=== PATIENT | female | born 1980 | race Caucasian/White ===

== ENCOUNTER 2016-09-07 19:57 | Observation (INO) ==
[2016-09-07 21:11] LABS: Bilirubin,Urine Negative (Negative); Blood,Urine Negative (Negative); Clarity,Urine Clear (Clear); Color,Urine Yellow (Yellow); Glucose,Urine (UA) >=1000 mg/dL (Normal); Ketones,Urine Negative (Negative); Leukocyte Esterase,Urine Negative (Negative); Nitrite,Urine Negative (Negative); Protein,Urine 30 mg/dL (Neg-Trace); Specific Gravity,Urine > 1.030 (1.010-1.025); Urobilinogen,Urine Normal (Normal)
[2016-09-07 21:13] LABS: Bacteria,Urine Few per hpf (None-Few); Hyaline Casts,Urine None Seen per lpf (None-Few); Squamous Epithelial Cell,Urine Many per lpf (None-Few)
[2016-09-07 21:36] LABS: Basophils % 0.3 %; Mean Corpuscular Volume 65.2 fL (83.0-100.0); Monocytes % 6.6 %; Platelet Count 150 K/mcL (140-400)
[2016-09-07 21:37] LABS: Eosinophils # 0.2 K/mcL (0.0-0.6); Hematocrit 18.4 % (35.3-44.9); Immature Granulocytes % 1.3 % (0-4); Immature Platelets 6.3 % (1.1-6.1); Lymphocytes % 27.3 %; Mean Corpuscular HGB Conc 28.8 g/dL (31.6-35.5); Mean Corpuscular Hemoglobin 18.8 pg (28.0-33.3); Monocytes # 0.4 K/mcL (0.0-1.3); Neutrophils # 3.9 K/mcL (1.6-8.9); Nucleated Red Blood Cells 0.3 /100 WBC (0); Red Blood Count 2.82 M/mcL (3.82-4.97); Red Cell Distribution Width 18.4 % (11.5-14.5); Segmented Neutrophils % 61.5 %
[2016-09-07 21:40] LABS: BUN/Creatinine Ratio 14 (6-26); Blood Urea Nitrogen 12 mg/dL (7-20); Calcium 8.8 mg/dL (8.6-10.8); Carbon Dioxide 21 mEq/L (19-29); Chloride 100 mEq/L (98-109); Glucose 361 mg/dL (70-99); Osmolality,Calculated 290 (280-300); Sodium 133 mEq/L (136-145); eGFR For African Americans > 60 (> 60); eGFR For Non-African Americans > 60 (> 60)
[2016-09-07 21:56] LABS: Lymphocytes # 1.8 K/mcL (0.6-4.6)
[2016-09-07 21:59] LABS: Hemoglobin 5.3 g/dL (11.5-15.4)
[2016-09-07 22:01] LABS: Anisocytosis 2+ (Not Present); Hypochromasia Present (Not Present); Microcytosis Present (Not Present)
[2016-09-07 22:02] LABS: Platelet Estimate Normal (Normal)
[2016-09-07] MEDS ORDERED: 0.9 % Sodium Chloride 1,000 ML ONE (22:11)
--- NOTE | 2016-09-07 22:23 | Emergency Department Note ---
Disposition Clinical Impression: Anemia Qualifiers: Anemia type: unspecified type Qualified Code(s): D64.9 - Anemia, unspecified Disposition: Admitted As Inpatient Condition: Good Time of Disposition: 22:29 General Adult HPI - General Chief complaint: ED Dizziness Stated complaint: dizziness vomiting fever Time Seen by Provider: 09/07/16 20:35 Source: patient Limitations: no limitations Nursing Notes Reviewed: Yes Vital Signs Reviewed: Yes - History of Present Illness HPI Narrative: pt presents with weakness and feeling like she has dizziness and weakness similar to her previous anemia from vaginal bleeding. She did not follow up with her OB physician who started on medications. She is here today because she has had 2 episodes of heavy menses of the last 2 months. 2 months ago her bleeding lasted approximately 3 weeks. Patient denies any other complaints or issues at this time she is currently denying bleeding Onset (ago): month(s) (2 months) Radiation: non-radiation Pain Scale: 0 Quality: aching Consistency: constant Improves with: nothing Worsens with: movement Associated symptoms: Reports: denies other symptoms Treatments Prior to Arrival: none - Related Data Home Medications Medication Instructions Recorded Confirmed Lisinopril [Zestril] 20 mg PO DAILY 09/08/16 09/08/16 Metformin [Glucophage] 500 mg PO BIDWM 09/08/16 09/08/16 Allergies Allergy/AdvReac Type Severity Reaction Status Date / Time No Known Allergies Allergy Verified 09/07/16 20:15 All systems ED: reviewed and negative except as stated. Gastrointestinal: Reports: other (Heavy vaginal bleeding) Neurological: Reports: other (Lightheaded and dizzy while walking) Past Medical History - Past Medical History Attestation: Yes The following information was validated with the patient. Source: patient (5) Medical history: Reports: diabetes, hypertension Psychiatric history: Reports: no psych history MOTION GRAPHICS ARTIST history: Reports: no MOTION GRAPHICS ARTIST history - Social History Smoking Status: Never smoker Smokeless Tobacco Status: No Alcohol use: Reports: none Drug use: Reports: none Physical Exam - General Limitations: no limitations General appearance: alert - Chest Chest inspection: Present: normal inspection, symmetric chest wall rise - Respiratory Respiratory exam: Present: normal lung sounds bilaterally - Cardiovascular Cardiovascular exam: Present: regular rate, normal rhythm, normal heart sounds - Extremities Exam Extremities exam: Present: normal inspection, full ROM. Absent: tenderness - Back Exam Back exam: Present: normal inspection, full ROM. Absent: tenderness - Neurological Exam Neurological exam: Present: alert, oriented X3, CN II-XII intact, normal gait - Skin Skin exam: Present: pallor Course Course Narrative: Patient seen and examined the time of arrival. See history of present illness. Patient resents emergency room with complaint of generalized weakness and dizziness. She has had this happen once in the past when she was anemic. He has had heavy menstrual bleeding over the last 2 months at home. She has never been seen by her OB for treatment of this issue. Patient comes in here today denying bleeding but she was at her grandmother's house and her grandmother told her that she looked Pale. Patient denied any other symptoms except for the weakness and dizziness. She says that this is identical to her previous anemia event. She has required a blood transfusion in the past. physical exam is benign she looks appropriate. Skin does have pallor to it. Her conjunctiva are pale. Capillary refill is diminished less than 5 seconds this time. Patient has normal blood pressure and's vital signs on presentation. Patient denies bleeding of this point abdomen is benign lungs are clear heart is regular. She will have basic CBC chem strip urinalysis at this time. Eventually also prophylactically in case she is anemic. Patient is resting comfortable in the bed disposition pending treatment course - Reevaluation(s) Reevaluation #1: Patient on a hemoglobin of 5.3. Transfusion of your this time. Patient be admitted for evaluation and medical management. Patient is otherwise stable at this time. [facility] patient this time Time: 22:29 Reevaluation #2: Patient was discussed with the hospitalist . The patient's presentation symptoms history of vaginal bleeding and anemia. He is happy to bring the patient for further evaluation and management. Second unit of blood is having at this time. Hemodynamics of been stable. No other acute issues at this point. Continue monitoring in emergency room to the admission process is completed Time: 23:35 Vital Signs Temperature 98.7 F 09/07/16 20:15 Pulse Rate 115 09/07/16 20:15 Respiratory Rate 20 09/07/16 20:15 Blood Pressure 182/94 09/07/16 20:15 O2 Sat by Pulse Oximetry 99 09/07/16 20:15 Temperature 97.7 F 09/08/16 03:34 Pulse Rate 56 09/08/16 03:34 Respiratory Rate 16 09/08/16 03:34 Blood Pressure 177/108 09/08/16 03:34 O2 Sat by Pulse Oximetry 95 09/08/16 03:34 Oxygen Delivery Oxygen Delivery Room Air Medical Decision Making - MDM Narrative Medical decision making narrative: Anemia secondary to vaginal bleeding - Medical Records Medical records reviewed: Yes I reviewed the patient's medical records. - Lab Data Lab results reviewed: Yes I reviewed the patient's lab results. Result diagrams: 09/07/16 21:11 09/07/16 21:11 Lab Results 09/07/16 09/07/16 09/07/16 Range/Units 20:43 20:43 21:11 WBC 6.4 (4.3-11.1) K/mcL RBC 2.82 L (3.82-4.97) M/mcL Hgb 5.3 L* (11.5-15.4) g/dL Hct 18.4 L (35.3-44.9) % MCV 65.2 L (83.0-100.0) fL MCH 18.8 L (28.0-33.3) pg MCHC 28.8 L (31.6-35.5) g/dL RDW 18.4 H (11.5-14.5) % Plt Count 150 (140-400) K/mcL MPV TNP Immature Gran % 1.3 (0-4) % Seg Neutrophils % 61.5 % Lymphocytes % 27.3 % Monocytes % 6.6 % Eosinophils % 3.0 % Basophils % 0.3 % Neutrophils # 3.9 (1.6-8.9) K/mcL Lymphocytes # 1.8 (0.6-4.6) K/mcL Monocytes # 0.4 (0.0-1.3) K/mcL Eosinophils # 0.2 (0.0-0.6) K/mcL Basophils # 0.0 (0.0-0.2) K/mcL Nucleated RBCs/100 WBC 0.3 H (0) /100 WBC Platelet Estimate Normal (Normal) Immature Plt Fraction 6.3 H (1.1-6.1) % Hypochromasia Present A (Not Present) Anisocytosis 2+ A (Not Present) Microcytosis Present A (Not Present) Sodium (136-145) mEq/L Potassium (3.5-4.5) mEq/L Chloride (98-109) mEq/L Carbon Dioxide (19-29) mEq/L BUN (7-20) mg/dL Creatinine (0.57-1.11) mg/dL Est GFR ( Amer) (> 60) Est GFR (Non-Af Amer) (> 60) BUN/Creatinine Ratio (6-26) Glucose (70-99) mg/dL Calculated Osmolality (280-300) Calcium (8.6-10.8) mg/dL Urine Color Yellow (Yellow) Urine Clarity Clear (Clear) Urine pH 6.0 (5.0-8.0) pH Units Ur Specific [place] > 1.030 H (1.010-1.025) Urine Protein 30 H (Neg-Trace) mg/dL Urine Glucose (UA) >=1000 H (Normal) mg/dL Urine Ketones Negative (Negative) mg/dL Urine Blood Negative (Negative) Urine Nitrite Negative (Negative) Urine Bilirubin Negative (Negative) Urine Urobilinogen Normal (Normal) mg/dL Ur Leukocyte Esterase Negative (Negative) Urine Microscopic RBC 5-15 H (0-3) per hpf Urine Microscopic WBC 5-15 H (0-3) per hpf Ur Squamous Epith Cells Many H (None-Few) per lpf Urine Bacteria Few (None-Few) per hpf Hyaline Casts None Seen (None-Few) per lpf Ur Culture Indicated? YES A (NO) Urine Test Negative (Negative) Blood Type Antibody Screen Crossmatch 09/07/16 09/07/16 Range/Units 21:11 21:11 WBC (4.3-11.1) K/mcL RBC (3.82-4.97) M/mcL Hgb (11.5-15.4) g/dL Hct (35.3-44.9) % MCV (83.0-100.0) fL MCH (28.0-33.3) pg MCHC (31.6-35.5) g/dL RDW (11.5-14.5) % Plt Count (140-400) K/mcL MPV Immature Gran % (0-4) % Seg Neutrophils % % Lymphocytes % % Monocytes % % Eosinophils % % Basophils % % Neutrophils # (1.6-8.9) K/mcL Lymphocytes # (0.6-4.6) K/mcL Monocytes # (0.0-1.3) K/mcL Eosinophils # (0.0-0.6) K/mcL Basophils # (0.0-0.2) K/mcL Nucleated RBCs/100 WBC (0) /100 WBC Platelet Estimate (Normal) Immature Plt Fraction (1.1-6.1) % Hypochromasia (Not Present) Anisocytosis (Not Present) Microcytosis (Not Present) Sodium 133 L (136-145) mEq/L Potassium 4.0 (3.5-4.5) mEq/L Chloride 100 (98-109) mEq/L Carbon Dioxide 21 (19-29) mEq/L BUN 12 (7-20) mg/dL Creatinine 0.84 (0.57-1.11) mg/dL Est GFR ( Amer) > 60 (> 60) Est GFR (Non-Af Amer) > 60 (> 60) BUN/Creatinine Ratio 14 (6-26) Glucose 361 H (70-99) mg/dL Calculated Osmolality 290 (280-300) Calcium 8.8 (8.6-10.8) mg/dL Urine Color (Yellow) Urine Clarity (Clear) Urine pH (5.0-8.0) pH Units Ur Specific [place] (1.010-1.025) Urine Protein (Neg-Trace) mg/dL Urine Glucose (UA) (Normal) mg/dL Urine Ketones (Negative) mg/dL Urine Blood (Negative) Urine Nitrite (Negative) Urine Bilirubin (Negative) Urine Urobilinogen (Normal) mg/dL Ur Leukocyte Esterase (Negative) Urine Microscopic RBC (0-3) per hpf Urine Microscopic WBC (0-3) per hpf Ur Squamous Epith Cells (None-Few) per lpf Urine Bacteria (None-Few) per hpf Hyaline Casts (None-Few) per lpf Ur Culture Indicated? (NO) Urine Test (Negative) Blood Type A POSITIVE Antibody Screen NEGATIVE Crossmatch See Detail Critical Care Time Critical Care Time: Yes Total Critical Care Time: 30 Attestation: Independent of procedures and medical management Attestation Statement - Attestation Attestation: I personally interviewed and examined this patient and my medical decision- making was reviewed with the ED Resident Physician, Dr. Doe. I agree with the documented findings, disposition and treatment plan as described in the documentation. Patient with iron deficiency anemia related to heavy menstrual periods who has been noncompliant with outpatient follow-up as well as her iron supplementation who presents today with gradually worsening lightheadedness generalized weakness and dyspnea with exertion. He should very pale in color and tachycardic on arrival to the emergency department with a stable blood pressure. Patient was found to be profoundly anemic on her CBC and patient was typed and crossed for 4 units of blood with blood transfusion initiated in the ED. Patient in no acute respiratory distress with a stable blood pressure throughout ED course. Plan is to admit patient for ongoing transfusion and reassessment, accepted by hospitalist service.
[2016-09-08] MEDS ORDERED: *HR* Dextrose 50 % in Water (Syg) 50 ML SYRINGE IVP PRN (02:40)
[2016-09-08] MEDS ORDERED: Dextrose Gel 15 GM PO PRN ×2 (02:40)
[2016-09-08] MEDS ORDERED: Fluconazole 100 MG TABLET PO ONE (02:43)
--- NOTE | 2016-09-08 02:50 | Internal Med History&Physical ---
<HerbertManju Ann - Last Filed: 09/08/16 04:28> Date of Encounter: 09/08/16 Time of Encounter: 02:46 Assessment and Plan (1) Anemia Current visit: Yes Status: Acute Hb 5.3 microcytic hypochromic 2uRBC trend H/H iron profile TSH lasix after RBCs add oral FE and folate BID Qualifiers: Anemia type: unspecified type Qualified Code(s): D64.9 - Anemia, unspecified (2) Abnormal vaginal bleeding Current visit: Yes Status: Acute TSH test (3) Yeast infection of the vagina Current visit: Yes Status: Acute diflucan 150 PO x1 (4) Vaginal discharge Current visit: Yes Status: Acute (5) Diabetes Current visit: Yes Status: Acute check A1C diabetic diet with moderate SCC Qualifiers: Diabetes mellitus type: other specified (including GIOVANI) (6) Hypertension Current visit: Yes Status: Acute continue home meds (7) Chronic RLQ pain Current visit: Yes Status: Acute pelvic US Internal Medicine - H&P: HPI Chief complaint: lightheaded dizziness Admitted From: Home Plans for Post Hospital Care: Home History of present illness: Ms. David is a 35 year old female c/o lightheaded dizziness. PMHx DM, HTN. Pt states she has been lightheaded and dizzy upon standing with increased fatigue and occasional racing heart beats today. Pt states for the past 4 months she has had heavy bleeding with large blood clots with her periods. The last two months periods have also been lasting about 3 weeks. She does have some cramping and discomfort during this time mostly in RLQ. Pt states that she did have episodes like this before in early in which she had to receive a blood transfusion for a hemoglobin of 2 and have multiple cysts removed. Pt states she also recently was sick one week ago placed on amoxicillin, 3days after starting antibiotics developed white vaginal discharge and vaginal itching. Pt previous pregnancies, denies abnormal paps, STIs. Pt denies syncopal episodes, LOC, CP, SOB, numbness/tingling, current abd pain. Past Med Surg Social Fam HX - Past Medical History Medical history: diabetes, hypertension, thyroid disease Psychiatric history: no psych history - Social History Smoking Status: Never smoker Smokeless Tobacco Status: No Alcohol use: none Drug use: none Current living situation: Home - Family History Father Hx Family Cardiac Disorders: Yes (IN, pacer) Hx Family Respiratory Disorders: Yes (COPD) Mother Hx Family Cardiac Disorders: Yes (IN, pacer) Hx Family Respiratory Disorders: Yes (COPD) Internal Medicine - H&P: Meds Lisinopril [Zestril] 20 mg PO DAILY 09/08/16 [History] Metformin [Glucophage] 1,000 mg PO BIDWM 09/08/16 [History] Norgestimate-Ethinyl Estradiol [Ortho Tri-Cyclen 28 Tablet] 1 each PO DAILY #30 tablet 09/08/16 [Rx] Allergies No Known Allergies Allergy (Verified 09/07/16 20:15) All Systems PM: A 10-system review of systems was performed and is negative for pertinent findings except as documented above in the HPI. - Constitutional Constitutional: fatigue, lethargy, malaise, weakness, no chills, no fever(s), no falls - EENT Eyes: no change in vision, no discharge, no pain, no photophobia - Cardiovascular Cardiovascular ROS IM: irregular heart rhythm, lightheadedness, no chest pain, no diaphoresis, no dyspnea, no dyspnea on exertion, no edema, no palpitations, no syncope - Respiratory Respiratory: no cough, no dyspnea, no wheezing, no excessive phlegm production - Gastrointestinal Gastrointestinal: no abdominal pain, no diarrhea, no hematemesis, no hematochezia, no melena, no nausea, no vomiting - Genitourinary Genitourinary: vaginal discharge, vaginal odor, vaginal pruritis, no dysuria - Musculoskeletal Musculoskeletal ROS IM: no numbness, no tingling - Integumentary Integumentary IM: no rash, no unusual bruising - Neurological Neurological ROS: no focal weakness, no frequent falls, no headache(s), no numbness, no tingling - Psychiatric Psychiatric: no anxiety, no depression - Endocrine Endocrine IM: fatigue - Constitutional Vitals: Temp Pulse Resp BP Pulse Ox 98.1 F 88 20 157/92 100 09/08/16 00:46 09/08/16 00:46 09/08/16 00:46 09/08/16 00:46 09/08/16 00:46 General appearance: Present: A&O X 3, pleasant, no acute distress, obese, answers questions appropriately Exam: pale - Head Head exam: Present: atraumatic, normocephalic - Eye Eye exam: Present: EOMI, conjuntiva pink, sclera anicteric Pupils: Present: PERRL - ENT ENT exam: Present: mucous membranes dry - Neck Neck exam general surgery: Present: full ROM, supple, trachea midline. Absent: thyromegaly - Respiratory Respiratory exam: Present: CTAB. Absent: accessory muscle use, rales, rhonchi, wheezes - Cardiovascular Cardiovascular exam: Present: RRR, +S1, +S2. Absent: diastolic murmur, gallop, rubs, systolic murmur - GI/Abdominal GI/Abdominal exam: Present: normal bowel sounds, soft, tenderness (minimal RLQ) , no peritoneal signs. Absent: guarding, rebound, rigid - Extremities Exam Extremities exam: Present: radial pulses palpable and symetrical. Absent: calf tenderness, pedal edema - Back Exam Back exam: Absent: CVA tenderness (L), CVA tenderness (R) - Neurological Exam Neurological exam: Present: CN II-XII intact, oriented X3, no focal deficits, strengths equal and symetr throughout - Psychiatric Psychiatric exam: Present: normal affect, normal mood - Skin Skin exam: Present: dry, intact, pallor Internal Med - H&P Results - Labs CBC & Chem 7: 09/07/16 21:11 09/07/16 21:11 <Sylvain Kitchen R - Last Filed: 09/09/16 01:21> Internal Medicine - H&P: HPI History of present illness: Ms. David is a 35 year old female All Systems PM: A 10-system review of systems was performed and is negative for pertinent findings except as documented above in the HPI. - Constitutional Vitals: Temp Pulse Resp BP Pulse Ox 98.1 F 89 16 151/90 99 09/08/16 11:27 09/08/16 11:27 09/08/16 11:27 09/08/16 11:27 09/08/16 11:27 Internal Med - H&P Results - Labs CBC & Chem 7: 09/08/16 09:00 09/07/16 21:11 Labs: Short CBC 09/08/16 Range/Units 09:00 WBC 6.3 (4.3-11.1) K/mcL Hgb 8.1 L D (11.5-15.4) g/dL Hct 27.2 L (35.3-44.9) % Plt Count 163 (140-400) K/mcL Neutrophils # 3.9 (1.6-8.9) K/mcL - Attending Attestation I performed a history and physical examination of the patient and discussed his management with the Resident/Technical Project Lead. I reviewed the residents note and agree with the documented findings and plan of care, with additions as below. 35-year-old female with a history of menorrhagia presented with increased fatigue, dizziness and apparently was looking pale. Her hemoglobin in the emergency department was 5.3. She was started on PRBC transfusion in the ER. O/ E: Comfortable. Lungs clear to auscultation. Cardiac regular rate and rhythm. A/P: Total 2 units of PRBC and recheck CBC. Iron studies; Iron + folate supplements; gynecology consult.
[2016-09-08] MEDS ORDERED: Furosemide 20 MG/2 ML VIAL IVP ONE (04:25)
[2016-09-08 05:35] LABS: Hemoglobin A1C 8.1 %
[2016-09-08] MEDS ORDERED: Insulin LISPRO 300 UNITS/3 ML VIAL SQ SCH ×2 (06:00→21:00)
[2016-09-08] MEDS ORDERED: Naloxone 0.4 MG/ML INJ IVP PRN (08:49)
[2016-09-08] MEDS ORDERED: *HR* HYDROcodone/Acet 5/325 mg TABLET PO PRN (08:49)
[2016-09-08] MEDS ORDERED: Acetaminophen 325 MG TABLET PO PRN (08:49)
[2016-09-08] MEDS ORDERED: *HR* Morphine 2 MG/ML SYRINGE IVP PRN (08:49)
[2016-09-08] MEDS ORDERED: Ondansetron 4 MG/2 ML VIAL IVP PRN (08:49)
[2016-09-08] MEDS: Lisinopril 20 MG TABLET PO SCH (09:08)
[2016-09-08 09:20] LABS: Basophils # 0.1 K/mcL (0.0-0.2); Basophils % 0.8 %; Eosinophils # 0.2 K/mcL (0.0-0.6); Eosinophils % 2.4 %; Hematocrit 27.2 % (35.3-44.9); Hemoglobin 8.1 g/dL (11.5-15.4); Immature Granulocytes % 1.6 % (0-4); Lymphocytes # 1.6 K/mcL (0.6-4.6); Mean Corpuscular HGB Conc 29.8 g/dL (31.6-35.5); Mean Corpuscular Hemoglobin 21.7 pg (28.0-33.3); Mean Corpuscular Volume 72.9 fL (83.0-100.0); Mean Platelet Volume 10.8 fL (9.4-12.4); Monocytes # 0.5 K/mcL (0.0-1.3); Monocytes % 7.9 %; Neutrophils # 3.9 K/mcL (1.6-8.9); Nucleated Red Blood Cells 0.5 /100 WBC (0); Platelet Count 163 K/mcL (140-400); Red Blood Count 3.73 M/mcL (3.82-4.97); Red Cell Distribution Width 22.7 % (11.5-14.5); Segmented Neutrophils % 61.3 %
[2016-09-08 09:53] LABS: Triiodothyronine (T3) Free 2.71 pg/mL (1.71-3.71)
[2016-09-08] MEDS: Insulin LISPRO 300 UNITS/3 ML VIAL SQ SCH ×2 (11:57→17:30)
--- NOTE | 2016-09-08 14:47 | Event Note ---
Date of Encounter: 09/08/16 Time of Encounter: 10:30 Patient is seen and examined. On examination, patient is sitting upright in her bed. Patient stating she feels a lot better than yesterday but continues to be slightly dizzy. She states the ringing in her ears has stopped. She is endorsing a normal appetite. She is also endorsing nausea- Zofran ordered as needed. No vomiting. She is status post transfusion of 2 units packed red blood cells. Initial hemoglobin 5.3, repeat 8.1. We will observe her overnight for hemodynamic stability and possibly discharge tomorrow. Patient stating she had an episode similar to this back in 2001 or 2002 and states her hemoglobin was 2 upon presentation. She states she has not seen an LANDSCAPE CREW MEMBER since 2005. She states she does not currently have insurance. We will bring OB /HIGH SCHOOL GUIDANCE COUNSELOR onboard to establish care and for possible control. Patient stating that she has not had any vaginal bleeding for one week. Patient remains hypertensive despite having her home lisinopril continued. As she does not have insurance, we will start her on carvedilol which is on the $4 medication list at [facility]. She is also slightly tachycardic. We will recheck blood counts in the morning and transfuse if indicated. Pelvic ultrasound still pending. HCG negative. Of note, patient is listed as being on metformin and lisinopril at home but she states she has not taken any medications in 4-5 months. We will bring social group worker on board. Will also restart her metformin upon discharge. Hemoglobin A1c 8.1%. Patient also has a yeast infection, Diflucan 1 given. Abnormal urinalysis noted, consistent with a contaminant, urine culture pending. Patient denies dysuria other than itching for yeast infection. Will hold off on antibiotics at this time and await urine culture.
--- NOTE | 2016-09-08 17:43 | Event Note ---
Date of Encounter: 09/08/16 Time of Encounter: 15:00 Spoke to the BLENDING TANK TENDER HELPER doctor Antonella Rizvi who recommended starting the patient on Sprintec which is a $9 medication at [facility]. Pelvic ultrasound still pending. We will observe the patient overnight for hemodynamic stability and likely discharge tomorrow. She is stable and does not need to see BLENDING TANK TENDER HELPER during this visit, she can follow up outpatient. Will also bring life educator on board as the patient states she has not been checking her sugars and she has not taken her home medications for 4-5 months.
[2016-09-09 04:25] LABS: Hematocrit 26.1 % (35.3-44.9); Hemoglobin 7.6 g/dL (11.5-15.4)
[2016-09-09] MEDS: Lisinopril 20 MG TABLET PO SCH (08:12)
[2016-09-09] MEDS: Insulin LISPRO 300 UNITS/3 ML VIAL SQ SCH ×3 (08:12→17:56)
[2016-09-09] MEDS ORDERED: 0.9 % Sodium Chloride 250 ML ONE (10:55)
[2016-09-09 14:27] VITALS: BP 132/82
--- NOTE | 2016-09-09 16:49 | Discharge Summary ---
Date of Encounter: 09/09/16 Time of Encounter: 15:00 - Discharge Diagnosis (1) Acute blood loss anemia Priority: Primary Status: Acute Comments: Stable status post 3 units of packed red blood cells. Patient has not had any vaginal bleeding since last week. Started on control, follow-up outpatient (2) Abnormal vaginal bleeding Priority: Secondary Status: Chronic (3) Yeast infection of the vagina Priority: Primary Status: Acute Comments: Treated with Diflucan while admitted (4) Diabetes Priority: Secondary Status: Chronic Comments: Patient is stating she has not been taking her metformin for the past 4-5 months. This is a $4 medication at [facility], will be filled and she will be placed back on it upon discharge. A1c 8.1%. Patient was also given a glucometer, test strips, and lancets prior to discharge. She was seen by diabetes education during his admission and recommend follow-up outpatient with [facility] Qualifiers: Diabetes mellitus type: type 2 Diabetes mellitus complication status: with hyperglycemia Diabetes mellitus chcf insulin use: without chcf use Qualified Code(s): E11.65 - Type 2 diabetes mellitus with hyperglycemia (5) Hypertension Priority: Secondary Status: Chronic Comments: Her regular home lisinopril dosage was continued however she remained hypertensive, carvedilol also added to her regimen, normotensive on day of discharge. (6) Chronic RLQ pain Priority: Secondary Status: Chronic Comments: Pelvic ultrasound unremarkable, follow-up outpatient - Discharge Medications Prescriptions: Carvedilol [Coreg] 3.125 mg PO BIDWM #30 tablet Lisinopril [Zestril] 20 mg PO DAILY #30 tablet Metformin HCl [Glucophage] 1,000 mg PO BIDWM #60 tablet Norgestimate-Ethinyl Estradiol [Ortho Tri-Cyclen 28 Tablet] 1 each PO DAILY #30 tablet Home Medications: Carvedilol [Coreg] 3.125 mg PO BIDWM #60 tablet 09/09/16 [Rx] Lisinopril [Zestril] 20 mg PO DAILY #30 tablet 09/09/16 [Rx] Metformin HCl [Glucophage] 1,000 mg PO BIDWM #60 tablet 09/09/16 [Rx] Norgestimate-Ethinyl Estradiol [Sprintec 28 Day Tablet] 1 each PO DAILY #28 tablet 09/09/16 [Rx] Allergies/Adverse Reactions: Allergies No Known Allergies Allergy (Verified 09/07/16 20:15) Procedures/tests Complete & Pending: Procedures Performed prior 72 hours Category Date Time Status US pelvis extended [US] Routine Exams 09/08/16 14:00 Completed Date of admission: 09/07/16 23:46 Primary care physician: PCP NO Consults: 09/08/16 08:47 Consult to CLEANING PORTER [CONS] Routine Consulting Provider: ETL DATA ARCHITECT Julia Reason for Consult: heavy menstrual flow x4 months- severely anemic (initial hb 5.3). Hx of same presentation and had cysts removed Time Notified: 08:48 Call Completed: Yes 09/08/16 19:28 Consult to Site Controller [CONS] Routine Comment: medications Discharging clinician: Laina Mcrae Anticipated date of discharge: 09/09/16 - Patient Status Disposition: Home, Self-Care Condition: Good Functional capacity at discharge: independent ambulation Overall status at discharge: patient is progressing back to baseline - Discharge Instructions Follow Up With: Sammy Briseno DO [Resident] - 11/08/16 3:00 pm Kay Rizvi DO [Partnered Physician] - Additional Instructions: Follow-up with her new primary care provider as scheduled, follow up with OB/ DIGITAL ASSOCIATE MEDIA DIRECTOR in 2-3 weeks. Follow up with [facility] - Diet and Activity Activity: increase activity as tolerated Diet: diabetic diet, low salt diet Hospital course: Ms. David is a 35 year old female with past medical history of diabetes, hypertension. Patient presented to the emergency department chief complaint lightheadedness and dizziness upon standing with increased fatigue and occasional racing heartbeat. Patient stating for the past 4 months she has had heavy menstrual cycles with large blood clots noted. Inpatient stating the last 2 periods have lasted approximately 3 weeks. Patient also endorsed lower abdominal cramping and pain to her right lower quadrant. Patient stating she had an episode like this before back in early 2005 when she had to receive a blood transfusion and she stated her initial hemoglobin at that time was 2. Patient was also seen outpatient last week and placed on amoxicillin and 3 days after starting the antibiotics, she developed white vaginal discharge and vaginal itching. Patient with no prior obstetric history, no pregnancies or children. Patient denied abnormal Pap smears or history of STI's. Patient denied any syncopal episodes. Workup in the emergency department revealing marketed anemia with initial hemoglobin of 5.3. Patient was admitted to the hospitalist service for further evaluation and management. She was transfused with a total of 3 units of packed red blood cells over the course of her one night admission. Her menstrual cycle stopped one week prior to this presentation she did not have any further leading during this admission. Pelvic ultrasound revealing small fibroid and was otherwise unremarkable. Spoke to ETL DATA ARCHITECT doctor Antonella Rizvi who recommended starting her on control in following up outpatient. Patient remained hemodynamically stable after being transfused. She was able to tolerate a regular diet. Of note, patient does not currently have insurance and has not taken her home diabetes or blood pressure medications for the last 4-5 months. banking services officer was brought on board and the patient applied for HCAP. Patient was noted to have a yeast infection she was treated with one dose of Diflucan during admission. Patient had an abnormal urinalysis but the urine culture was mixed and unable to be interpreted. Other than itching from her [place] infection, patient denied dysuria. No leukocytosis or signs of infection. She was started on Sprintec which is on the $9 portion of the [facility] menu. She was also started on lisinopril but remained hypertensive so carvedilol was added to her regimen and her blood pressure was much better controlled. Carvedilol is also on the $4 medication list at [facility]. Her tachycardia also improved after initiation of this medication. She was also placed back on her metformin which is also on the $4 list at [facility]. HCG was negative. She was seen by level vial inside grinder during this admission who educated her on portion control, goals for her glucose and she was giving a glucometer with test strips and lancets and was recommended to follow up with the [facility] and [facility]' s ETL DATA ARCHITECT. She was discharged home in stable condition with close outpatient follow-up recommended. Of note, she was unable to get into the residency clinic for 2 months, medications were written for 3 month supply ITS Impressions Pelvis Ultrasound 09/08/16 14:00 IMPRESSION: Rounded hypoechoic structure along the uterine fundus measuring 1.8 x 1.4 x 1.3 cm, which is nonspecific in appearance but could represent a small exophytic fibroid. Otherwise, unremarkable pelvic ultrasound. D/ / 09/08/2016 15:45:49 Kannan Bajwa MD / Chela Gutierrez Interpreting Provider: Kannan Bajwa MD - Time Spent with Patient Total time spent providing and/or coordinating discharge services: - Constitutional Vitals: Temp Pulse Resp BP Pulse Ox 98 F 85 18 132/82 96 09/09/16 11:13 09/09/16 11:13 09/09/16 11:13 09/09/16 11:13 09/09/16 11:13 General appearance: Present: A&O X 3, pleasant, no acute distress, obese, answers questions appropriately - Head Head exam: Present: atraumatic, normocephalic - Eye Eye exam: Present: PERRL, conjuntiva pink, sclera anicteric Pupils: Present: PERRL - Neck Neck exam general surgery: Present: supple, trachea midline. Absent: lymphadenopathy - Respiratory Respiratory exam: Present: CTAB. Absent: accessory muscle use, rales, respiratory distress, rhonchi, wheezes - Cardiovascular Cardiovascular exam: Present: RRR, +S1, +S2. Absent: diastolic murmur, gallop, rubs, systolic murmur - GI/Abdominal GI/Abdominal exam: Present: normal bowel sounds, soft, no peritoneal signs. Absent: distended, tenderness - Extremities Exam Extremities exam: Present: warm, radial pulses palpable and symetrical. Absent : calf tenderness, cyanotic, pedal edema - Neurological Exam Neurological exam: Present: alert, CN II-XII intact, normal gait, oriented X3, no focal deficits, strengths equal and symetr throughout. Absent: pronater drift, facial droop, speech deficit - Skin Skin exam: Present: dry, intact, pallor, warm
== END 2016-09-09 17:50 | disposition home or self-care (01) ==
LOC: EMEROO 19:57 → 2ANU 19:57 → SUATTDRO 23:46 → 2ANU 23:54 → 3BNU 23:55
PROVIDERS: ADMIT Nurse Practitioner Family; ATTEND Nurse Practitioner Family

== ENCOUNTER 2018-01-12 19:34 | Observation (INO) ==
[2018-01-12] MEDS ORDERED: 0.9 % Sodium Chloride 1,000 ML IVC ONE (19:51)
[2018-01-12] MEDS ORDERED: Ondansetron 4 MG/2 ML VIAL IVP ONE (19:51)
[2018-01-12] MEDS ORDERED: GI Cocktail 40 ML EACH PO ONE (19:51)
[2018-01-12] MEDS ORDERED: Pantoprazole 40 MG VIAL IVP ONE (19:51)
--- NOTE | 2018-01-12 19:57 | Emergency Department Note ---
Disposition Clinical Impression: Thickening of wall of gallbladder with pericholecystic fluid Uncontrolled diabetes mellitus Qualifiers: Diabetes mellitus type: type 2 Diabetes mellitus chcf insulin use: unspecified chcf insulin use status Diabetes mellitus complication status: with unspecified complications Qualified Code(s): E11.8 - Type 2 diabetes mellitus with unspecified complications Abdominal pain Qualifiers: Abdominal location: generalized Qualified Code(s): R10.84 - Generalized abdominal pain Cholelithiasis Qualifiers: Cholelithiasis location: gallbladder Cholecystitis presence: with cholecystitis Cholecystitis acuity: acute Biliary obstruction: without biliary obstruction Qualified Code(s): K80.00 - Calculus of gallbladder with acute cholecystitis without obstruction Disposition: Admitted As Inpatient Condition: Fair Referrals: Rohit Calle DO [Primary Care Provider] - Forms: ED Satisfaction Letter, Work/School Release Time of Disposition: 22:33 Abdominal Pain HPI - General Chief Complaint: ED Abdominal Pain Stated Complaint: Abdominal pain Time Seen by Provider: 01/12/18 19:44 Source: patient Mode of arrival: ambulatory Limitations: no limitations Nursing Notes Reviewed: Yes Vital Signs Reviewed: Yes - History of Present Illness HPI Narrative: Patient presents to the ED with the chief complaint of epigastric abdominal pain. States it started 3 days ago. Has progressively worsened. No previous history of pain like this in the past. Patient has a history of hypertension but has been noncompliant with her medication. She also has a history of non- insulin-dependent diabetes. States the pain is intermittent, sharp and burning in nature. Nonradiating. Not really associated with anything in particular. Is not better or worse before after meals. Does have some associated nausea. No chest discomfort or shortness of breath. States that she just feels weak and rundown. No other abdominal pain. No dysuria, hematuria. No diarrhea or constipation, melena or hematochezia. No rash. No pain or swelling in her legs. Pain Scale: 8 - Related Data Previous Rx's Medication Instructions Recorded Lisinopril [Zestril] 20 mg PO DAILY #30 tablet 09/09/16 Metformin HCl [Glucophage] 1,000 mg PO BIDWM #60 tablet 09/09/16 Allergies Allergy/AdvReac Type Severity Reaction Status Date / Time No Known Allergies Allergy Verified 01/12/18 22:05 Review of Systems: As reviewed in the HPI. All other systems reviewed are negative or normal. Abdominal Pain PMH - Past Medical History Medical history: Reports: diabetes, hypertension Female Surgical History: Reports: other AIRPLANE CHARTER CLERK history: Reports: no AIRPLANE CHARTER CLERK history Psychiatric history: Reports: no psych history - Social History Smoking status: Never smoker Alcohol use: Reports: none Drug use: Reports: none Physical Exam - General Limitations: no limitations General appearance: alert, in no apparent distress - Head Head exam: atraumatic, normocephalic, normal inspection - Eye Eye exam: Present: normal appearance, PERRL, EOMI - ENT ENT exam: normal exam, normal oropharynx, mucous membranes moist - Neck Neck exam: Present: normal inspection, full ROM, trachea midline - Chest Chest inspection: Present: normal inspection, symmetric chest wall rise - Respiratory Respiratory exam: Present: normal lung sounds bilaterally - Cardiovascular Cardiovascular exam: Present: regular rate, normal rhythm, normal heart sounds - Abdominal Exam Abdominal exam: Present: soft, tenderness. Absent: distention, guarding, rebound Abdominal tenderness: Present: epigastrium, mild - Extremities Exam Extremities exam: Present: normal inspection, full ROM. Absent: tenderness, pedal edema - Neurological Exam Neurological exam: Present: alert, oriented X3 - Psychiatric Psychiatric exam: Present: normal affect, normal mood - Skin Skin exam: Present: warm, dry, intact, normal color Course Course Narrative: patient with epigastric abd pain not well responsive to Gi cocktail. Concern over gallbladder issues from bedside US, will get formal and recheck. Tbili also slightly elevated. - Reevaluation(s) Reevaluation #1: pt has a large gall stone and minimal pericholecystic fluid concerning for possible cholecystitis. Spoke with on-call surgeon, Dr. Reinoso. Will admit to hospitalist service for uncontrolled DM/HTN. Admitted to Dr. Jaime. Checked A1C = 10 and lipid panel. Requested IV insulin and HTN meds in ED. Will dose with lisinopril since she was on this previously. Patient agreeable with plan. Vital Signs Temperature 98.6 F 01/12/18 19:35 Pulse Rate 97 01/12/18 19:35 Respiratory Rate 16 01/12/18 19:35 Blood Pressure 192/99 01/12/18 19:35 O2 Sat by Pulse Oximetry 97 01/12/18 19:35 Temperature 98.6 F 01/12/18 19:35 Pulse Rate 85 01/12/18 21:06 Respiratory Rate 16 01/12/18 21:06 Blood Pressure 179/114 01/12/18 21:06 O2 Sat by Pulse Oximetry 100 01/12/18 21:06 Oxygen Delivery Oxygen Delivery Room Air Abdominal Pain - Medical Records Medical records reviewed: Yes I reviewed the patient's medical records. - Lab Data Lab results reviewed: Yes I reviewed the patient's lab results. Result diagrams: 01/12/18 20:00 01/12/18 20:00 Lab Results 01/12/18 01/12/18 01/12/18 Range/Units 20:00 20:00 20:00 WBC 8.7 (4.3-11.1) K/mcL RBC 4.53 (3.82-4.97) M/mcL Hgb 13.1 (11.5-15.4) g/dL Hct 37.5 (35.3-44.9) % MCV 82.8 L (83.0-100.0) fL MCH 28.9 (28.0-33.3) pg MCHC 34.9 (31.6-35.5) g/dL RDW 13.1 (11.5-14.5) % Plt Count 232 (140-400) K/mcL MPV 10.9 (9.4-12.4) fL Immature Gran % 0.3 (0-4) % Seg Neutrophils % 65.4 % Lymphocytes % 26.8 % Monocytes % 6.1 % Eosinophils % 0.9 % Basophils % 0.5 % Neutrophils # 5.7 (1.6-8.9) K/mcL Lymphocytes # 2.3 (0.6-4.6) K/mcL Monocytes # 0.5 (0.0-1.3) K/mcL Eosinophils # 0.1 (0.0-0.6) K/mcL Basophils # 0.0 (0.0-0.2) K/mcL Sodium 134 L (136-145) mEq/L Potassium 3.5 (3.5-5.1) mEq/L Chloride 101 (98-107) mEq/L Carbon Dioxide 24 (23-29) mEq/L BUN 8 (6-20) mg/dL Creatinine 0.66 (0.60-1.20) mg/dL Est GFR ( Amer) > 60 (> 60) Est GFR (Non-Af Amer) > 60 (> 60) BUN/Creatinine Ratio 12 (6-26) Glucose 362 H (70-105) mg/dL Est Mean Plasma Glucose 240 mg/dl Hemoglobin A1c 10.0 H ( - 5.6) % Calculated Osmolality 291 (280-300) Calcium 9.6 (8.6-10.3) mg/dL Total Bilirubin 1.2 H (0.3-1.0) mg/dL Direct Bilirubin 0.2 (0.0-0.2) mg/dL Indirect Bilirubin 1.0 (0.0-1.2) mg/dL AST 19 (13-39) Units/L ALT 30 (7-52) Units/L Alkaline Phosphatase 71 (34-104) Units/L Troponin I < 0.03 (< 0.04) ng/mL Serum Total Protein 7.8 (6.4-8.9) g/dL Albumin 4.6 (3.5-5.7) g/dL Globulin 3.2 (2.4-3.5) g/dL Albumin/Globulin Ratio 1.4 (1.1-2.2) Triglycerides 158 H (< 150) mg/dL Cholesterol 161 (< 200) mg/dL LDL Cholesterol, Calc 96 (0-99) mg/dL VLDL Cholesterol, Calc 32 H (< 31) mg/dL HDL Cholesterol 33 L (40-59) mg/dL Cholesterol/HDL Ratio 4.9 (0-4.9) Lipase 37 (11-82) Units/L Urine Color (Yellow) Urine Clarity (Clear) Urine pH (5.0-8.0) pH Units Ur Specific [place] (1.010-1.025) Urine Protein (Neg-Trace) mg/dL Urine Glucose (UA) (Normal) mg/dL Urine Ketones (Negative) mg/dL Urine Blood (Negative) Urine Nitrite (Negative) Urine Bilirubin (Negative) Urine Urobilinogen (Normal) mg/dL Ur Leukocyte Esterase (Negative) Urine Microscopic RBC (0-3) per hpf Urine Microscopic WBC (0-3) per hpf Ur Squamous Epith Cells (None-Few) per lpf Urine Bacteria (None-Few) per hpf Hyaline Casts (None-Few) per lpf Ur Culture Indicated? (NO) 01/12/18 Range/Units 20:06 WBC (4.3-11.1) K/mcL RBC (3.82-4.97) M/mcL Hgb (11.5-15.4) g/dL Hct (35.3-44.9) % MCV (83.0-100.0) fL MCH (28.0-33.3) pg MCHC (31.6-35.5) g/dL RDW (11.5-14.5) % Plt Count (140-400) K/mcL MPV (9.4-12.4) fL Immature Gran % (0-4) % Seg Neutrophils % % Lymphocytes % % Monocytes % % Eosinophils % % Basophils % % Neutrophils # (1.6-8.9) K/mcL Lymphocytes # (0.6-4.6) K/mcL Monocytes # (0.0-1.3) K/mcL Eosinophils # (0.0-0.6) K/mcL Basophils # (0.0-0.2) K/mcL Sodium (136-145) mEq/L Potassium (3.5-5.1) mEq/L Chloride (98-107) mEq/L Carbon Dioxide (23-29) mEq/L BUN (6-20) mg/dL Creatinine (0.60-1.20) mg/dL Est GFR ( Amer) (> 60) Est GFR (Non-Af Amer) (> 60) BUN/Creatinine Ratio (6-26) Glucose (70-105) mg/dL Est Mean Plasma Glucose mg/dl Hemoglobin A1c ( - 5.6) % Calculated Osmolality (280-300) Calcium (8.6-10.3) mg/dL Total Bilirubin (0.3-1.0) mg/dL Direct Bilirubin (0.0-0.2) mg/dL Indirect Bilirubin (0.0-1.2) mg/dL AST (13-39) Units/L ALT (7-52) Units/L Alkaline Phosphatase (34-104) Units/L Troponin I (< 0.04) ng/mL Serum Total Protein (6.4-8.9) g/dL Albumin (3.5-5.7) g/dL Globulin (2.4-3.5) g/dL Albumin/Globulin Ratio (1.1-2.2) Triglycerides (< 150) mg/dL Cholesterol (< 200) mg/dL LDL Cholesterol, Calc (0-99) mg/dL VLDL Cholesterol, Calc (< 31) mg/dL HDL Cholesterol (40-59) mg/dL Cholesterol/HDL Ratio (0-4.9) Lipase (11-82) Units/L Urine Color Yellow (Yellow) Urine Clarity Clear (Clear) Urine pH 6.0 (5.0-8.0) pH Units Ur Specific [place] > 1.030 H (1.010-1.025) Urine Protein 30 H (Neg-Trace) mg/dL Urine Glucose (UA) >=1000 H (Normal) mg/dL Urine Ketones Trace H (Negative) mg/dL Urine Blood Negative (Negative) Urine Nitrite Negative (Negative) Urine Bilirubin Negative (Negative) Urine Urobilinogen Normal (Normal) mg/dL Ur Leukocyte Esterase Negative (Negative) Urine Microscopic RBC 0-3 (0-3) per hpf Urine Microscopic WBC 5-15 H (0-3) per hpf Ur Squamous Epith Cells Many H (None-Few) per lpf Urine Bacteria None Seen (None-Few) per hpf Hyaline Casts None Seen (None-Few) per lpf Ur Culture Indicated? NO (NO) - Radiology Data Radiology results reviewed: Yes I reviewed the patient's radiology results. - EKG Data EKG attestation: Yes I reviewed and interpreted this EKG. EKG results narrative: normal rate, rhythm, axis, and intervals, no ischemic change.
--- NOTE | 2018-01-12 20:05 | Emergency Department Note ---
Disposition Clinical Impression: Cholelithiasis, Thickening of wall of gallbladder with pericholecystic fluid Uncontrolled diabetes mellitus Qualifiers: Diabetes mellitus type: type 2 Diabetes mellitus exterminator helper insulin use: unspecified exterminator helper insulin use status Diabetes mellitus complication status: with unspecified complications Qualified Code(s): E11.8 - Type 2 diabetes mellitus with unspecified complications Abdominal pain Qualifiers: Abdominal location: generalized Qualified Code(s): R10.84 - Generalized abdominal pain Disposition: Admitted As Inpatient Condition: Fair Referrals: Rohit Calle DO [Primary Care Provider] - Forms: ED Satisfaction Letter, Work/School Release General Adult HPI - General Chief complaint: ED Abdominal Pain Stated complaint: Abdominal pain Time Seen by Provider: 01/12/18 19:44 Source: patient Mode of arrival: ambulatory Limitations: no limitations - History of Present Illness Pain Scale: 8 - Related Data Previous Rx's Medication Instructions Recorded Lisinopril [Zestril] 20 mg PO DAILY #30 tablet 09/09/16 Metformin HCl [Glucophage] 1,000 mg PO BIDWM #60 tablet 09/09/16 Allergies Allergy/AdvReac Type Severity Reaction Status Date / Time No Known Allergies Allergy Verified 01/12/18 22:05 Past Medical History - Past Medical History Medical history: Reports: diabetes, hypertension Psychiatric history: Reports: no psych history PANTOGRAPH WATCHER history: Reports: no PANTOGRAPH WATCHER history - Social History Smoking Status: Never smoker Smokeless Tobacco Status: No Alcohol use: Reports: none Drug use: Reports: none Physical Exam - General Limitations: no limitations General appearance: alert, in no apparent distress Course Vital Signs Temperature 98.6 F 01/12/18 19:35 Pulse Rate 97 01/12/18 19:35 Respiratory Rate 16 01/12/18 19:35 Blood Pressure 192/99 01/12/18 19:35 O2 Sat by Pulse Oximetry 97 01/12/18 19:35 Temperature 98.6 F 01/12/18 19:35 Pulse Rate 85 01/12/18 21:06 Respiratory Rate 16 01/12/18 21:06 Blood Pressure 179/114 01/12/18 21:06 O2 Sat by Pulse Oximetry 100 01/12/18 21:06 Oxygen Delivery Oxygen Delivery Room Air Medical Decision Making - Lab Data Result diagrams: 01/12/18 20:00 01/12/18 20:00 Lab Results 01/12/18 01/12/1801/12/18 Range/Units 20:00 20:00 20:00 WBC 8.7 (4.3-11.1) K/mcL RBC 4.53 (3.82-4.97) M/mcL Hgb 13.1 (11.5-15.4) g/dL Hct 37.5 (35.3-44.9) % MCV 82.8 L (83.0-100.0) fL MCH 28.9 (28.0-33.3) pg MCHC 34.9 (31.6-35.5) g/dL RDW 13.1 (11.5-14.5) % Plt Count 232 (140-400) K/mcL MPV 10.9 (9.4-12.4) fL Immature Gran % 0.3 (0-4) % Seg Neutrophils % 65.4 % Lymphocytes % 26.8 % Monocytes % 6.1 % Eosinophils % 0.9 % Basophils % 0.5 % Neutrophils # 5.7 (1.6-8.9) K/mcL Lymphocytes # 2.3 (0.6-4.6) K/mcL Monocytes # 0.5 (0.0-1.3) K/mcL Eosinophils # 0.1 (0.0-0.6) K/mcL Basophils # 0.0 (0.0-0.2) K/mcL Sodium 134 L (136-145) mEq/L Potassium 3.5 (3.5-5.1) mEq/L Chloride 101 (98-107) mEq/L Carbon Dioxide 24 (23-29) mEq/L BUN 8 (6-20) mg/dL Creatinine 0.66 (0.60-1.20) mg/dL Est GFR ( Amer) > 60 (> 60) Est GFR (Non-Af Amer) > 60 (> 60) BUN/Creatinine Ratio 12 (6-26) Glucose 362 H (70-105) mg/dL Est Mean Plasma Glucose 240 mg/dl Hemoglobin A1c 10.0 H ( - 5.6) % Calculated Osmolality 291 (280-300) Calcium 9.6 (8.6-10.3) mg/dL Total Bilirubin 1.2 H (0.3-1.0) mg/dL Direct Bilirubin 0.2 (0.0-0.2) mg/dL Indirect Bilirubin 1.0 (0.0-1.2) mg/dL AST 19 (13-39) Units/L ALT 30 (7-52) Units/L Alkaline Phosphatase 71 (34-104) Units/L Troponin I < 0.03 (< 0.04) ng/mL Serum Total Protein 7.8 (6.4-8.9) g/dL Albumin 4.6 (3.5-5.7) g/dL Globulin 3.2 (2.4-3.5) g/dL Albumin/Globulin Ratio 1.4 (1.1-2.2) Triglycerides 158 H (< 150) mg/dL Cholesterol 161 (< 200) mg/dL LDL Cholesterol, Calc 96 (0-99) mg/dL VLDL Cholesterol, Calc 32 H (< 31) mg/dL HDL Cholesterol 33 L (40-59) mg/dL Cholesterol/HDL Ratio 4.9 (0-4.9) Lipase 37 (11-82) Units/L Urine Color (Yellow) Urine Clarity (Clear) Urine pH (5.0-8.0) pH Units Ur Specific [place] (1.010-1.025) Urine Protein (Neg-Trace) mg/dL Urine Glucose (UA) (Normal) mg/dL Urine Ketones (Negative) mg/dL Urine Blood (Negative) Urine Nitrite (Negative) Urine Bilirubin (Negative) Urine Urobilinogen (Normal) mg/dL Ur Leukocyte Esterase (Negative) Urine Microscopic RBC (0-3) per hpf Urine Microscopic WBC (0-3) per hpf Ur Squamous Epith Cells (None-Few) per lpf Urine Bacteria (None-Few) per hpf Hyaline Casts (None-Few) per lpf Ur Culture Indicated? (NO) 01/12/18 Range/Units 20:06 WBC (4.3-11.1) K/mcL RBC (3.82-4.97) M/mcL Hgb (11.5-15.4) g/dL Hct (35.3-44.9) % MCV (83.0-100.0) fL MCH (28.0-33.3) pg MCHC (31.6-35.5) g/dL RDW (11.5-14.5) % Plt Count (140-400) K/mcL MPV (9.4-12.4) fL Immature Gran % (0-4) % Seg Neutrophils % % Lymphocytes % % Monocytes % % Eosinophils % % Basophils % % Neutrophils # (1.6-8.9) K/mcL Lymphocytes # (0.6-4.6) K/mcL Monocytes # (0.0-1.3) K/mcL Eosinophils # (0.0-0.6) K/mcL Basophils # (0.0-0.2) K/mcL Sodium (136-145) mEq/L Potassium (3.5-5.1) mEq/L Chloride (98-107) mEq/L Carbon Dioxide (23-29) mEq/L BUN (6-20) mg/dL Creatinine (0.60-1.20) mg/dL Est GFR ( Amer) (> 60) Est GFR (Non-Af Amer) (> 60) BUN/Creatinine Ratio (6-26) Glucose (70-105) mg/dL Est Mean Plasma Glucose mg/dl Hemoglobin A1c ( - 5.6) % Calculated Osmolality (280-300) Calcium (8.6-10.3) mg/dL Total Bilirubin (0.3-1.0) mg/dL Direct Bilirubin (0.0-0.2) mg/dL Indirect Bilirubin (0.0-1.2) mg/dL AST (13-39) Units/L ALT (7-52) Units/L Alkaline Phosphatase (34-104) Units/L Troponin I (< 0.04) ng/mL Serum Total Protein (6.4-8.9) g/dL Albumin (3.5-5.7) g/dL Globulin (2.4-3.5) g/dL Albumin/Globulin Ratio (1.1-2.2) Triglycerides (< 150) mg/dL Cholesterol (< 200) mg/dL LDL Cholesterol, Calc (0-99) mg/dL VLDL Cholesterol, Calc (< 31) mg/dL HDL Cholesterol (40-59) mg/dL Cholesterol/HDL Ratio (0-4.9) Lipase (11-82) Units/L Urine Color Yellow (Yellow) Urine Clarity Clear (Clear) Urine pH 6.0 (5.0-8.0) pH Units Ur Specific [place] > 1.030 H (1.010-1.025) Urine Protein 30 H (Neg-Trace) mg/dL Urine Glucose (UA) >=1000 H (Normal) mg/dL Urine Ketones Trace H (Negative) mg/dL Urine Blood Negative (Negative) Urine Nitrite Negative (Negative) Urine Bilirubin Negative (Negative) Urine Urobilinogen Normal (Normal) mg/dL Ur Leukocyte Esterase Negative (Negative) Urine Microscopic RBC 0-3 (0-3) per hpf Urine Microscopic WBC 5-15 H (0-3) per hpf Ur Squamous Epith Cells Many H (None-Few) per lpf Urine Bacteria None Seen (None-Few) per hpf Hyaline Casts None Seen (None-Few) per lpf Ur Culture Indicated? NO (NO) Attestation Statement - Attestation Attestation: I examined this patient and my medical decision-making was reviewed with the Resident Physician. I agree with the documented findings, disposition and treatment plan as described except to the extent set forth below. Patient presents to the ED with a chief complaint of abdominal pain. Onset 4 days ago. No vomiting. No diarrhea. Normal bowel movements. She has not taken anything for this. On examination she has some mild epigastric tenderness without guarding. She sitting up in bed crosslegged on her cell phone when I enter the room. Plan. Basic labs and symptom control. Patient has a soft, nonsurgical abdomen. Patient had a bedside oximetry large stone. Was sent for formal ultrasound that shows a large stone with some gallbladder wall thickening. Will Discuss with surgery. Patient admitted to medicine with consult to Dr. Reinoso.
[2018-01-12 20:19] LABS: Bilirubin,Urine Negative (Negative); Blood,Urine Negative (Negative); Clarity,Urine Clear (Clear); Color,Urine Yellow (Yellow); Glucose,Urine (UA) >=1000 mg/dL (Normal); Ketones,Urine Trace mg/dL (Negative); Leukocyte Esterase,Urine Negative (Negative); Nitrite,Urine Negative (Negative); Protein,Urine 30 mg/dL (Neg-Trace); Specific Gravity,Urine > 1.030 (1.010-1.025); Urobilinogen,Urine Normal (Normal)
[2018-01-12 20:21] LABS: Basophils % 0.5 %; Eosinophils # 0.1 K/mcL (0.0-0.6); Eosinophils % 0.9 %; Hematocrit 37.5 % (35.3-44.9); Hemoglobin 13.1 g/dL (11.5-15.4); Immature Granulocytes % 0.3 % (0-4); Lymphocytes # 2.3 K/mcL (0.6-4.6); Lymphocytes % 26.8 %; Mean Corpuscular HGB Conc 34.9 g/dL (31.6-35.5); Mean Corpuscular Hemoglobin 28.9 pg (28.0-33.3); Mean Corpuscular Volume 82.8 fL (83.0-100.0); Mean Platelet Volume 10.9 fL (9.4-12.4); Monocytes # 0.5 K/mcL (0.0-1.3); Monocytes % 6.1 %; Neutrophils # 5.7 K/mcL (1.6-8.9); Platelet Count 232 K/mcL (140-400); Red Blood Count 4.53 M/mcL (3.82-4.97); Red Cell Distribution Width 13.1 % (11.5-14.5); Segmented Neutrophils % 65.4 %
[2018-01-12 20:23] LABS: Bacteria,Urine None Seen per hpf (None-Few); Hyaline Casts,Urine None Seen per lpf (None-Few); RBC,Urine 0-3 per hpf (0-3); Squamous Epithelial Cell,Urine Many per lpf (None-Few)
[2018-01-12 20:49] LABS: Troponin I < 0.03 ng/mL (< 0.04)
[2018-01-12 20:50] LABS: Alanine Aminotransferase 30 Units/L (7-52); Albumin 4.6 g/dL (3.5-5.7); Albumin/Globulin Ratio 1.4 (1.1-2.2); Alkaline Phosphatase 71 Units/L (34-104); Aspartate Amino Transferase 19 Units/L (13-39); BUN/Creatinine Ratio 12 (6-26); Bilirubin,Direct 0.2 mg/dL (0.0-0.2); Bilirubin,Total 1.2 mg/dL (0.3-1.0); Blood Urea Nitrogen 8 mg/dL (6-20); Calcium 9.6 mg/dL (8.6-10.3); Carbon Dioxide 24 mEq/L (23-29); Chloride 101 mEq/L (98-107); Globulin 3.2 g/dL (2.4-3.5); Glucose 362 mg/dL (70-105); Lipase 37 Units/L (11-82); Osmolality,Calculated 291 (280-300); Potassium 3.5 mEq/L (3.5-5.1); Sodium 134 mEq/L (136-145); Total Protein 7.8 g/dL (6.4-8.9); eGFR For Non-African Americans > 60 (> 60)
[2018-01-12 22:01] LABS: Chol/HDL Ratio 4.9 (0-4.9); Cholesterol 161 mg/dL (< 200); Estimated Average Glucose 240 mg/dl; HDL Cholesterol 33 mg/dL (40-59); LDL Cholesterol,Calculated 96 mg/dL (0-99); Triglycerides 158 mg/dL (< 150)
[2018-01-12] MEDS ORDERED: *HR* HYDROmorphone (PF) 1 MG/ML SYRINGE IVP ONE (22:05)
[2018-01-12] MEDS ORDERED: Insulin Human Regular 10 UNIT in 0.9 % Sodium Chloride 10 ML IV ONE (22:28)
--- NOTE | 2018-01-13 04:14 | Internal Med History&Physical ---
Date of Encounter: 01/13/18 Time of Encounter: 04:06 Internal Medicine - H&P: HPI Chief complaint: Abd pain Admitted From: Home History of present illness: Ms. David is a 37 year old female with a PMH of DM type 2, HTN, anemia, and obesity who presented c/o epigastric abd pain and nausea for the past 4 days. Pain is 8/10 severity at its worst and radiates to her right shoulder. The pain is intermittent, sharp, and burning in nature. Nothing makes the pain better. She denies associated fever, chills, CP, SOB, vomiting, diarrhea, constipation, dysuria, hematuria, leg edema, or history of similar symptoms in the past. She is not compliant with her HTN and anti-glycemic medications. Past Med Surg Social Fam HX - Past Medical History Medical history: diabetes, hypertension Additional medical history: anemia. uterine fibroids Psychiatric history: no psych history - Past Surgical History Additional surgical history: ovarian cysts - Social History Smoking Status: Never smoker Smokeless Tobacco Status: No Alcohol use: none Drug use: none Occupational status: employed (Home [employer]) Current living situation: Home, With Family Activity Level: Independent ambulation - Family History Father Hx Family Cardiac Disorders: Yes ([place], pacer) Hx Family Respiratory Disorders: Yes (COPD) Mother Hx Family Cardiac Disorders: Yes ([place], pacer) Hx Family Respiratory Disorders: Yes (COPD) Internal Medicine - H&P: Meds Lisinopril [Zestril] 20 mg PO DAILY #30 tablet 09/09/16 [Rx] Metformin HCl [Glucophage] 1,000 mg PO BIDWM #60 tablet 09/09/16 [Rx] 3 Allergy/AdvReac Type Severity Reaction Status Date / Time No Known Allergies Allergy Verified 01/12/18 22:05 All Systems PM: A 10-system review of systems was performed and is negative for pertinent findings except as documented above in the HPI. - Constitutional Constitutional: anorexia, fatigue, weakness, no chills, no fever(s), no lethargy , no weight gain, no weight loss - EENT Eyes: no blurry vision, no diplopia Nose, mouth and throat: no sinus pain, no sore throat - Cardiovascular Cardiovascular ROS IM: no chest pain, no dyspnea - Respiratory Respiratory: no cough, no dyspnea, no wheezing - Gastrointestinal Gastrointestinal: abdominal pain, nausea, no constipation, no diarrhea, no heartburn, no vomiting - Genitourinary Genitourinary: no dysuria, no hematuria, no urinary frequency, no urinary urgency Menstruation: cycle < 21 days - Musculoskeletal Musculoskeletal ROS IM: no arthralgias, no back pain, no numbness, no tingling - Integumentary Integumentary IM: no erythema, no new lesions, no rash - Neurological Neurological ROS: weakness, no dizziness, no numbness, no tingling - Psychiatric Psychiatric: no anxiety, no depression - Endocrine Endocrine IM: fatigue, no polydipsia, no polyphagia, no polyuria - Hematologic/Lymphatic Hematologic/Lymphatic: no easy bleeding, no easy bruising - Constitutional Vitals: Temp Pulse Resp BP Pulse Ox 98.3 F 76 18 149/89 96 01/13/18 02:33 01/13/18 02:33 01/13/18 02:33 01/13/18 02:33 01/13/18 02:33 General appearance: Present: cooperative, A&O X 3, pleasant, no acute distress, obese, answers questions appropriately - Head Head exam: Present: atraumatic, normocephalic - Eye Eye exam: Present: PERRL, conjuntiva pink, sclera anicteric Pupils: Present: PERRL - ENT ENT exam: Present: mucous membranes moist, normal oropharynx - Neck Neck exam general surgery: Present: supple, trachea midline. Absent: lymphadenopathy - Respiratory Respiratory exam: Present: CTAB. Absent: accessory muscle use, rales, rhonchi, wheezes - Cardiovascular Cardiovascular exam: Present: RRR, +S1, +S2. Absent: diastolic murmur, gallop, rubs, systolic murmur - GI/Abdominal GI/Abdominal exam: Present: normal bowel sounds, soft, tenderness (RUQ, epigastric), no peritoneal signs. Absent: distended, guarding - Expanded GI/Abdominal Exam GI/Abdominal exam expanded: Present: Parisi's sign - Extremities Exam Extremities exam: Present: warm, radial pulses palpable and symmetrical. Absent : calf tenderness, cyanotic, pedal edema - Back Exam Back exam: Present: normal inspection. Absent: paraspinal tenderness, tenderness - Neurological Exam Neurological exam: Present: alert, CN II-XII intact, oriented X3, no focal deficits. Absent: pronater drift, facial droop, speech deficit - Psychiatric Psychiatric exam: Present: normal affect, normal mood - Skin Skin exam: Present: dry, intact, normal color, warm Internal Med - H&P Results - Labs CBC & Chem 7: 01/12/18 20:00 01/12/18 20:00 - Pulse Oximetry Interpretation Digit-Finger O2 Sat by Pulse Oximetry: 96 (On room air) - Impressions ITS Impressions Chest X-Ray 01/12/18 19:52 IMPRESSION: No acute process. D/ / David Jacobs MD / David Jacobs MD Interpreting Provider: David Jacobs MD Gallbladder Ultrasound 01/12/18 20:20 IMPRESSION: Gallstones and gallbladder sludge along with a small amount of pericholecystic fluid raise the possibility of cholecystitis. Diffuse fatty liver infiltration. D/ / John Robb MD / John Robb MD Interpreting Provider: John Robb MD - Assessment and plan (1) Thickening of wall of gallbladder with pericholecystic fluid Current Visit: Yes Status: Acute Assessment and plan: 37yo obese, fertile female presents c/o RUQ pain radiating to her right shoulder RUQ ultrasound reveals gallstones and gallbladder sludge along with a small amount of pericholecystic fluid raise the possibility of cholecystitis. Diffuse fatty liver infiltration. Labs reveal total bilirrubin 1.2, triglycerides 158 Surgery consulted, Emergency room physician discussed case with on-call surgeon , Dr. Reinoso Surgeon will evaluate patient in AM NPO after midnight Continue antiemetics (2) Hypertension Current Visit: Yes Status: Chronic Assessment and plan: Patient is non-compliant with HTN medications Continue home Lisinopril Hydralazine IV prn Qualifiers: Hypertension type: essential hypertension Qualified Code(s): I10 - Essential (primary) hypertension (3) Uncontrolled diabetes mellitus Current Visit: Yes Status: Chronic Assessment and plan: HGB a1c level 10.0 Patient is non-compliant with Metformin Consider adding insulin upon discharge Accuchecks q6h while NPO Diabetic education ordered Qualifiers: Diabetes mellitus type: type 2 Diabetes mellitus custodial insulin use: without legal records manager use Diabetes mellitus complication status: with unspecified complications Qualified Code(s): E11.8 - Type 2 diabetes mellitus with unspecified complications; E11.65 - Type 2 diabetes mellitus with hyperglycemia (4) Obesity (BMI 30.0-34.9) Current Visit: Yes Status: Chronic Assessment and plan: Lifestyle modification (5) DVT prophylaxis Current Visit: Yes Status: Acute Assessment and plan: SCDs, ambulation - Time Spent With Patient Total time spent is greater than 50% in coordination of care (as documented) at patient's floor/unit and/or counseling patient:
[2018-01-13] MEDS ORDERED: Naloxone 0.4 MG/ML INJ IVP PRN (04:25)
[2018-01-13] MEDS ORDERED: Acetaminophen 325 MG TABLET PO PRN (04:25)
[2018-01-13] MEDS ORDERED: D5% in Water 1,000 ML IVC PRN (04:25)
[2018-01-13] MEDS ORDERED: Ondansetron 4 MG/2 ML VIAL IVP PRN (04:25)
[2018-01-13] MEDS ORDERED: *HR* Dextrose 50 % in Water (Syg) 50 ML SYRINGE IVP PRN (04:25)
[2018-01-13] MEDS ORDERED: Dextrose Gel 15 GM/37.5 ML TUBE PO PRN ×2 (04:25)
[2018-01-13] MEDS ORDERED: Ketorolac 15 MG/ML VIAL IVP PRN (04:25)
[2018-01-13] MEDS ORDERED: Insulin LISPRO 300 UNITS/3 ML VIAL SQ SCH ×7 (06:00→21:00)
[2018-01-13 06:02] LABS: Basophils % 0.3 %; Eosinophils # 0.1 K/mcL (0.0-0.6); Eosinophils % 0.5 %; Hematocrit 31.9 % (35.3-44.9); Immature Granulocytes % 0.4 % (0-4); Lymphocytes # 2.1 K/mcL (0.6-4.6); Mean Corpuscular HGB Conc 34.2 g/dL (31.6-35.5); Mean Corpuscular Hemoglobin 28.7 pg (28.0-33.3); Mean Corpuscular Volume 83.9 fL (83.0-100.0); Mean Platelet Volume 10.7 fL (9.4-12.4); Monocytes # 0.5 K/mcL (0.0-1.3); Monocytes % 5.5 %; Neutrophils # 6.4 K/mcL (1.6-8.9); Platelet Count 181 K/mcL (140-400); Red Cell Distribution Width 13.2 % (11.5-14.5); Segmented Neutrophils % 70.3 %
[2018-01-13 06:06] LABS: Hemoglobin 10.9 g/dL (11.5-15.4)
[2018-01-13 06:11] LABS: Prothrombin Time 11.7 Seconds (9.4-12.1)
[2018-01-13 06:22] LABS: Alanine Aminotransferase 25 Units/L (7-52); Albumin 3.7 g/dL (3.5-5.7); Albumin/Globulin Ratio 1.4 (1.1-2.2); Alkaline Phosphatase 56 Units/L (34-104); Aspartate Amino Transferase 19 Units/L (13-39); BUN/Creatinine Ratio 18 (6-26); Bilirubin,Total 1.1 mg/dL (0.3-1.0); Blood Urea Nitrogen 10 mg/dL (6-20); Calcium 8.8 mg/dL (8.6-10.3); Carbon Dioxide 26 mEq/L (23-29); Chloride 106 mEq/L (98-107); Globulin 2.6 g/dL (2.4-3.5); Glucose 265 mg/dL (70-105); Osmolality,Calculated 290 (280-300); Potassium 3.8 mEq/L (3.5-5.1); Sodium 136 mEq/L (136-145); Total Protein 6.3 g/dL (6.4-8.9); eGFR For Non-African Americans > 60 (> 60)
[2018-01-13] MEDS: Ringers Solution, Lactated 1,000 ML IVC SCH ×2 (06:43→16:27)
[2018-01-13] MEDS: Lisinopril 20 MG TABLET PO SCH (08:02)
--- NOTE | 2018-01-13 10:40 | General Surgery Consult Note ---
<Isidoro Salamanca - Last Filed: 01/13/18 13:13> Date of Encounter: 01/13/18 Time of Encounter: 10:29 Assessment and Plan (1) Abdominal pain Current Visit: Yes Status: Acute 37 YO F presenting with mid upper quadrant abdominal pain and a RUQ U/S showing gallstone and biliary sludge - most likely cholecystitis. - Continue insulin - monitor glucose levels - Tentative Lap Choley tomorrow - Diet: clear liquid diet, NPO midnight Qualifiers: Abdominal location: generalized Qualified Code(s): R10.84 - Generalized abdominal pain History of Present Illness History of present illness: 37 year old F presetngint with epigastric pain and nausea for 4 days. Pain is rated 8/10 in severty, radiating to the R shoulder and back, constant. Patient denies vomitting, but has felt the urge to vomit. She denies any change in bowel movements. Last BM was yesterday morning, patient is passing gas, denies abdominal distension/bloating, denies fever or chills. History is notable for diabetes uncontrolled, on metformin, HbA1C today was 10. Past Med Surg Social Fam HX - Past Medical History Medical history: diabetes, hypertension Additional medical history: anemia. uterine fibroids Psychiatric history: no psych history - Past Surgical History Additional surgical history: ovarian cysts - Social History Smoking Status: Never smoker Smokeless Tobacco Status: No Alcohol use: none Drug use: none - Family History Father Hx Family Cardiac Disorders: Yes ([place], pacer) Hx Family Respiratory Disorders: Yes (COPD) Mother Hx Family Cardiac Disorders: Yes ([place], pacer) Hx Family Respiratory Disorders: Yes (COPD) Medications and Allergies Lisinopril [Zestril] 20 mg PO DAILY #30 tablet 09/09/16 [Rx] Metformin HCl [Glucophage] 1,000 mg PO BIDWM #60 tablet 09/09/16 [Rx] 3 Allergy/AdvReac Type Severity Reaction Status Date / Time No Known Allergies Allergy Verified 01/12/18 22:05 Review of Systems All systems PM: The remainder of the systems were reviewed and are negative General Surgery Exam Initial Vital Signs Temp Pulse Resp BP Pulse Ox 98.6 F 97 16 192/99 97 01/12/18 19:35 01/12/18 19:35 01/12/18 19:35 01/12/18 19:35 01/12/18 19:35 Exam Initial Vital Signs Temp Pulse Resp BP Pulse Ox 98.6 F 97 16 192/99 97 01/12/18 19:35 01/12/18 19:35 01/12/18 19:35 01/12/18 19:35 01/12/18 19:35 Results - Labs 01/13/18 05:49 01/13/18 05:49 Abnormal lab results RBC 3.80 M/mcL (3.82-4.97) L 01/13/18 05:49 Hgb 10.9 g/dL (11.5-15.4) L D 01/13/18 05:49 Hct 31.9 % (35.3-44.9) L 01/13/18 05:49 Creatinine 0.57 mg/dL (0.60-1.20) L 01/13/18 05:49 Glucose 265 mg/dL (70-105) H 01/13/18 05:49 POC Glucose 233 mg/dL (70-99) H 01/13/18 06:53 Hemoglobin A1c 10.0 % (-5.6) H 01/12/18 20:00 Total Bilirubin 1.1 mg/dL (0.3-1.0) H 01/13/18 05:49 Serum Total Protein 6.3 g/dL (6.4-8.9) L 01/13/18 05:49 Triglycerides 158 mg/dL (< 150) H 01/12/18 20:00 VLDL Cholesterol, Calc 32 mg/dL (< 31) H 01/12/18 20:00 HDL Cholesterol 33 mg/dL (40-59) L 01/12/18 20:00 Ur Specific [place] > 1.030 (1.010-1.025) H 01/12/18 20:06 Urine Protein 30 mg/dL (Neg-Trace) H 01/12/18 20:06 Urine Glucose (UA) >=1000 mg/dL (Normal) H 01/12/18 20:06 Urine Ketones Trace mg/dL (Negative) H 01/12/18 20:06 Urine Microscopic WBC 5-15 per hpf (0-3) H 01/12/18 20:06 Ur Squamous Epith Cells Many per lpf (None-Few) H 07/26/18 20:06 Diabetes panel 01/13/18 Range/Units 05:49 Sodium 136 (136-145) mEq/L Potassium 3.8 (3.5-5.1) mEq/L Chloride 106 (98-107) mEq/L Carbon Dioxide 26 (23-29) mEq/L BUN 10 (6-20) mg/dL Creatinine 0.57 L (0.60-1.20) mg/dL Glucose 265 H (70-105) mg/dL Calcium 8.8 (8.6-10.3) mg/dL AST 19 (13-39) Units/L ALT 25 (7-52) Units/L Alkaline Phosphatase 56 (34-104) Units/L Albumin 3.7 (3.5-5.7) g/dL Calcium panel 01/13/18 Range/Units 05:49 Calcium 8.8 (8.6-10.3) mg/dL Albumin 3.7 (3.5-5.7) g/dL Pituitary panel 01/13/18 Range/Units 05:49 Sodium 136 (136-145) mEq/L Potassium 3.8 (3.5-5.1) mEq/L Chloride 106 (98-107) mEq/L Carbon Dioxide 26 (23-29) mEq/L BUN 10 (6-20) mg/dL Creatinine 0.57 L (0.60-1.20) mg/dL Glucose 265 H (70-105) mg/dL Calcium 8.8 (8.6-10.3) mg/dL Adrenal panel 01/13/18 Range/Units 05:49 Sodium 136 (136-145) mEq/L Potassium 3.8 (3.5-5.1) mEq/L Chloride 106 (98-107) mEq/L Carbon Dioxide 26 (23-29) mEq/L BUN 10 (6-20) mg/dL Creatinine 0.57 L (0.60-1.20) mg/dL Glucose 265 H (70-105) mg/dL Calcium 8.8 (8.6-10.3) mg/dL Total Bilirubin 1.1 H (0.3-1.0) mg/dL AST 19 (13-39) Units/L ALT 25 (7-52) Units/L Alkaline Phosphatase 56 (34-104) Units/L Albumin 3.7 (3.5-5.7) g/dL All other labs normal. Consult Discharge Plan - Plan Referrals: Rohit Calle DO [Primary Care Provider] - <DevenDeo Otoniel - Last Filed: 01/13/18 16:08> Date of Encounter: 01/13/18 Review of Systems All systems PM: The remainder of the systems were reviewed and are negative General Surgery Exam Initial Vital Signs Temp Pulse Resp BP Pulse Ox 98.6 F 97 16 192/99 97 01/12/18 19:35 01/12/18 19:35 01/12/18 19:35 01/12/18 19:35 01/12/18 19:35 Exam Initial Vital Signs Temp Pulse Resp BP Pulse Ox 98.6 F 97 16 192/99 97 01/12/18 19:35 01/12/18 19:35 01/12/18 19:35 01/12/18 19:35 01/12/18 19:35 Results - Labs 01/13/18 05:49 01/13/18 05:49 Abnormal lab results RBC 3.80 M/mcL (3.82-4.97) L 01/13/18 05:49 Hgb 10.9 g/dL (11.5-15.4) L D 01/13/18 05:49 Hct 31.9 % (35.3-44.9) L 01/13/18 05:49 Creatinine 0.57 mg/dL (0.60-1.20) L 01/13/18 05:49 Glucose 265 mg/dL (70-105) H 01/13/18 05:49 POC Glucose 233 mg/dL (70-99) H 01/13/18 06:53 Hemoglobin A1c 10.0 % (-5.6) H 01/12/18 20:00 Total Bilirubin 1.1 mg/dL (0.3-1.0) H 01/13/18 05:49 Serum Total Protein 6.3 g/dL (6.4-8.9) L 01/13/18 05:49 Triglycerides 158 mg/dL (< 150) H 01/12/18 20:00 VLDL Cholesterol, Calc 32 mg/dL (< 31) H 01/12/18 20:00 HDL Cholesterol 33 mg/dL (40-59) L 01/12/18 20:00 Ur Specific [place] > 1.030 (1.010-1.025) H 01/12/18 20:06 Urine Protein 30 mg/dL (Neg-Trace) H 01/12/18 20:06 Urine Glucose (UA) >=1000 mg/dL (Normal) H 01/12/18 20:06 Urine Ketones Trace mg/dL (Negative) H 01/12/18 20:06 Urine Microscopic WBC 5-15 per hpf (0-3) H 01/12/18 20:06 Ur Squamous Epith Cells Many per lpf (None-Few) H 01/12/18 20:06 Diabetes panel 01/13/18 Range/Units 05:49 Sodium 136 (136-145) mEq/L Potassium 3.8 (3.5-5.1) mEq/L Chloride 106 (98-107) mEq/L Carbon Dioxide 26 (23-29) mEq/L BUN 10 (6-20) mg/dL Creatinine 0.57 L (0.60-1.20) mg/dL Glucose 265 H (70-105) mg/dL Calcium 8.8 (8.6-10.3) mg/dL AST 19 (13-39) Units/L ALT 25 (7-52) Units/L Alkaline Phosphatase 56 (34-104) Units/L Albumin 3.7 (3.5-5.7) g/dL Calcium panel 01/13/18 Range/Units 05:49 Calcium 8.8 (8.6-10.3) mg/dL Albumin 3.7 (3.5-5.7) g/dL Pituitary panel 01/13/18 Range/Units 05:49 Sodium 136 (136-145) mEq/L Potassium 3.8 (3.5-5.1) mEq/L Chloride 106 (98-107) mEq/L Carbon Dioxide 26 (23-29) mEq/L BUN 10 (6-20) mg/dL Creatinine 0.57 L (0.60-1.20) mg/dL Glucose 265 H (70-105) mg/dL Calcium 8.8 (8.6-10.3) mg/dL Adrenal panel 01/13/18 Range/Units 05:49 Sodium 136 (136-145) mEq/L Potassium 3.8 (3.5-5.1) mEq/L Chloride 106 (98-107) mEq/L Carbon Dioxide 26 (23-29) mEq/L BUN 10 (6-20) mg/dL Creatinine 0.57 L (0.60-1.20) mg/dL Glucose 265 H (70-105) mg/dL Calcium 8.8 (8.6-10.3) mg/dL Total Bilirubin 1.1 H (0.3-1.0) mg/dL AST 19 (13-39) Units/L ALT 25 (7-52) Units/L Alkaline Phosphatase 56 (34-104) Units/L Albumin 3.7 (3.5-5.7) g/dL All other labs normal. - Attending Attestation I examined this patient and my medical decision-making was reviewed with the Resident Physician. I agree with the documented findings, disposition and treatment plan as described except to the extent set forth below. I reviewed the above assessment and evaluation and agree with the above plan. Patient states that her epigastric pain and right shoulder and upper back pain symptoms started this past Tuesday. Symptoms have been largely persistent and has been sharp in nature. She admits to nausea but no vomiting and denied any diarrhea or constipation symptoms. She states that food seemed to exacerbate her symptoms and she was evaluated in the emergency room by ultrasound which demonstrated gallbladder sludge and stones as well as minimal finn-cholecystic fluid. Bilirubin level is 1.1 today and yesterday's value was 1.2. Fractionated bilirubin was normal. AST and ALTs are normal. I think that her symptoms may be likely related to acute cholecystitis and agree with the current treatment. We will reevaluate her within the next 24 follow her blood sugars since elevated sugars are related to poor wound healing. Discussed with the patient and we will consider laparoscopic cholecystectomy during this hospitalization and within the next 24-48 hours.
--- NOTE | 2018-01-13 13:01 | Event Note ---
Date of Encounter: 01/13/18 Time of Encounter: 13:00 Patient feels better today. No nausea or vomiting reported today. She does complain of chest pain located in the substernal region that radiates upwards. She does have chest wall tenderness associated with it. On abdominal examination, Parisi's sign is negative. Abdomen is soft nontender. Await surgical evaluation. We will increase sliding scale insulin coverage. Monitor blood sugars.
[2018-01-13] MEDS ORDERED: Insulin DETEMIR 100 UNIT/ML X5UNITS SQ SCH (14:15)
[2018-01-13] MEDS: Insulin LISPRO 300 UNITS/3 ML VIAL SQ SCH (16:27)
--- NOTE | 2018-01-13 16:36 | Electrocardiograph Report ---
[address] [place], [place] [address] Test Date: 2018-01-12 Pat Name: Nimco David Department: 104 Room: 2A24 Gender: F Under Presser: ANUJ : 1980 Requested By: [id number] Order Number: [id number] Reading MD: Chandler Rao Measurements Intervals [place] Rate: 86 P: 36 ID: [id number] QRS: 5 QRSD: 89 T: 31 QT: 352 QTc: 395 Interpretive Statements SINUS RHYTHM Electronically Signed On 01-13-2018 16:34:28 EDT by Chandler Rao
[2018-01-13] MEDS: Insulin DETEMIR 100 UNIT/ML X5UNITS SQ SCH (22:20)
--- NOTE | 2018-01-14 06:44 | General Surgery Progress Note ---
Date of Encounter: 01/14/18 Time of Encounter: 06:42 - Assessment and Plan (1) Acute cholecystitis Current Visit: Yes Status: Acute I explained to the patient that I do think now would be appropriate to proceed with a laparoscopic cholecystectomy today. Risks and benefits known to the patient and she agrees to the above plan. Subjective Patient reports: other (Patient admits to some mild abdominal pain. Mild nausea.) Objective Vital Signs - Last 8 Hours Temp Pulse Resp BP Pulse Ox 01/14/18 04:03 98.2 F 76 17 137/85 97 01/14/18 00:36 98.5 F 76 17 134/83 96 Intake and Output 01/13/18 01/13/18 01/14/18 15:59 23:59 07:59 Intake Total 360 / 360 1360 / 1360 Balance 360 / 360 1360 / 1360 Intake: IV Fluids 1000 / 1000 Lactated Ringers 1,000 ML @ 100 1000 / 1000 mls/hr IVC .Q10H [facility] Rx#: [id number] Oral 360 / 360 360 / 360 Other: Meal Lunch Dinner Percent of Meal Consumed 100% 100% Weight 82.1 kg Blood Glucose* 312 111 Patient Weight 01/14/18 23:59 Weight 82.1 kg - General physical appearance well nourished, no distress - Abdomen Abdomen: Present: soft, tender (mild abdominal tenderness) - Labs 01/13/18 05:49 01/13/18 05:49 - VTE Documentation of Mechanical Device: Intermittent pneumatic compression device Consult Discharge Plan - Plan Referrals: Rohit Calle DO [Primary Care Provider] -
[2018-01-14] MEDS: Insulin LISPRO 300 UNITS/3 ML VIAL SQ SCH ×2 (07:51→11:55)
[2018-01-14] MEDS: Lisinopril 20 MG TABLET PO SCH (08:36)
--- NOTE | 2018-01-14 09:08 | Anesthesia Evaluation PreOp ---
Date of Encounter: 01/14/18 Time of Encounter: 09:06 - Past History Planned Operation: Lap Tammy Cardiac History: HTN (Non-compliant w/ meds) Pulmonary History: Denies Any Significant HX LIBRARY CLERICAL ASSISTANT History: Denies Any Significant HX Other Medical History: Diabetes Type II (Non-compliant w/ meds. Uncontrolled DM/ HbA1c = 10), Other (Hx Uterine Fibroids) Anesthesia History: Past Anesthesia Alcohol Use: none Drug use: none Medications and Allergies Lisinopril [Zestril] 20 mg PO DAILY #30 tablet 09/09/16 [Rx] Metformin HCl [Glucophage] 1,000 mg PO BIDWM #60 tablet 09/09/16 [Rx] 3 Allergy/AdvReac Type Severity Reaction Status Date / Time No Known Allergies Allergy Verified 01/12/18 22:05 - Meds/Allergy Pre-op Review Medications Reviewed: Yes Allergies Reviewed: Yes Beta Blockers on Current Med List: No Anesthesia Results - Labs 01/13/18 05:49 01/13/18 05:49 Laboratory Results Impressions Chest X-Ray 01/12/18 19:52 IMPRESSION: No acute process. D/ / David Jacobs MD / David Jacobs MD Interpreting Provider: David Jacobs MD Gallbladder Ultrasound 01/12/18 20:20 IMPRESSION: Gallstones and gallbladder sludge along with a small amount of pericholecystic fluid raise the possibility of cholecystitis. Diffuse fatty liver infiltration. D/ / John Robb MD / John Robb MD Interpreting Provider: John Robb MD Laboratory Tests 01/12/18 01/12/18 01/13/18 20:00 20:06 05:49 INR 1.0 Est GFR (Non-Af Amer) Est Mean Plasma Glucose 240 Hemoglobin A1c 10.0 H Ur Specific [place] > 1.030 H Urine Protein 30 H Urine Glucose (UA) >=1000 H Urine Ketones Trace H Urine Test 01/13/18 01/14/18 05:49 08:35 INR Est GFR (Non-Af Amer) > 60 Est Mean Plasma Glucose Hemoglobin A1c Ur Specific [place] Urine Protein Urine Glucose (UA) Urine Ketones Urine Test Negative Anesthesia Exam Vital Signs Temp Pulse Resp BP Pulse Ox 01/14/18 07:35 98.5 F 69 20 153/91 99 01/14/18 04:03 98.2 F 76 17 137/85 97 01/14/18 00:36 98.5 F 76 17 134/83 96 01/13/18 19:58 98.4 F 75 17 157/87 99 01/13/18 16:03 98.0 F 77 16 138/84 99 01/13/18 10:37 98.2 F 62 17 125/80 99 Intake and Output 01/13/18 01/14/18 01/14/18 23:59 07:59 15:59 Intake Total 1360 / 1360 Output Total 100 / 100 Balance 1360 / 1360 -100 / -100 Intake: IV Fluids 1000 / 1000 Lactated Ringers 1,000 ML @ 100 1000 / 1000 mls/hr IVC .Q10H [facility] Rx#: [id number] Oral 360 / 360 Output: Urine 100 / 100 Other: Meal Dinner Percent of Meal Consumed 100% Weight 82.1 kg Blood Glucose* 111 146 Patient Weight 01/14/18 23:59 Weight 82.1 kg Height: 5'3" Weight: 180# BMI = 32 NPO (# of Hours): MNoc - HEENT Pupil (Motor): Pupils equal, EOMI Mallampati: III Teeth: Poor dentition (Multiple cracked molars, pronounced gumline dz & Halitosis) Oral Opening: Greater than 3 - LIBRARY CLERICAL ASSISTANT LOC: Oriented LIBRARY CLERICAL ASSISTANT Motor: Normal RUE, Normal LUE, Normal RLE, Normal LLE, Normal Face LIBRARY CLERICAL ASSISTANT Sensory: Normal: RUE, LUE, RLE, LLE, Face - Cardiac Rhythm: Regular Murmur: None - Pulmonary Breath Sounds: bilateral Clear Respiratory Effort: Symmetrical Anesthesia Assess/Plan ASA Score: 3 (Uncontrolled DM, Uncontrolled HTN, Obesity) Modified [place] Scale for Level of Consciousness: Cooperative, oriented, and tranquil Anesthetic Plan: General Monitoring Plan: Standard Monitors Anes Supervising Prov Stmt: Pt seen/evaluated, R&B discussed, questions answered and consent obtained. Nickolas Min MD
[2018-01-14] MEDS ORDERED: Lidocaine -MPF 4% 5 ML AMPUL ONE (09:13)
[2018-01-14] MEDS ORDERED: *HR* Succinylcholine 200 MG/10 ML VIAL IVP ONE (09:13)
[2018-01-14] MEDS ORDERED: *HR* FentaNYL (PF) 100 MCG/2 ML VIAL ONE ×2 (09:13→10:22)
[2018-01-14] MEDS ORDERED: *HR* Propofol 200 MG/20 ML VIAL IVP ONE ×2 (09:13→09:51)
[2018-01-14] MEDS ORDERED: *HR* Rocuronium Bromide 50 MG/5 ML VIAL ONE (09:14)
[2018-01-14] MEDS ORDERED: Neostigmine Methylsulfate 3 MG/3 ML SYRINGE ONE (09:14)
[2018-01-14] MEDS ORDERED: Lidocaine -MPF 2% 2 ML VIAL ONE (09:14)
[2018-01-14] MEDS ORDERED: Dexamethasone 4 MG/ML VIAL ONE ×2 (09:14→11:03)
[2018-01-14] MEDS ORDERED: Ondansetron 4 MG/2 ML VIAL ONE ×2 (09:14→11:03)
[2018-01-14] MEDS ORDERED: *HR* HYDROmorphone (PF) 1 MG/ML SYRINGE IVP PRN (09:38)
[2018-01-14] MEDS ORDERED: *HR* Labetalol 20 MG/4 ML SYRINGE IVP PRN (09:38)
[2018-01-14] MEDS ORDERED: CefOXitin 2,000 MG VIAL ONE (09:54)
[2018-01-14] MEDS ORDERED: EPHEDrine 50 MG/ML VIAL ONE (10:12)
[2018-01-14] MEDS ORDERED: cefOXitin 2,000 MG in Water for inj. (sterile) 20 ML 20 ML IVP ONE (10:17)
[2018-01-14] MEDS ORDERED: Esmolol 100 MG/10 ML VIAL IVP ONE (10:37)
--- NOTE | 2018-01-14 10:42 | Operative Note ---
Date of procedure: 01/14/18 Pre-op diagnosis: Acute cholecystitis Post-op diagnosis: same Procedure: Laparoscopic cholecystectomy Anesthesia: ZANEA Surgeon: Deo Carvalho Was there an server assistant present: No Estimated blood loss (cc): 20 Specimen: gallbladder and contents Condition: stable Disposition: PACU Procedure in Detail: Date of surgery: 01/14/18 After properly identifying the patient, the patient was brought to the operating room placed in supine position. After proper IV sedation was achieved followed by general endotracheal intubation, the patient's abdomen was prepped and draped in a normal sterile fashion. A timeout was performed noting the patient's name and type of procedure to be performed. A super umbilical incision with an 11 blade scalpel was made down to the level of the rectus fascia. Once the rectus fascia was incised the abdomen was entered and a 12 mm port was placed in the incision. A laparoscopic camera was placed to the port which showed no injury to the abdominal organs upon entry. A subxiphoid 5 mm port and a right subcostal margin 5 mm port were placed under direct camera visualization after the abdomen was insufflated with carbon dioxide. The gallbladder was identified and retracted superiorly/anteriorly. The peritoneal covering overlying the cystic duct and cystic artery did have some mild edema consistent with acute cholecystitis. This was dissected away from these above-mentioned structures. The cystic duct and cystic artery with a further isolated, clipped laparoscopic clips, and incised laparoscopic scissors. The gallbladder was dissected off the gallbladder fossa with Bovie cauterization while Bovie cauterization was used to maintain hemostasis. The gallbladder was iatrogenically entered during the dissection with minimal spillage of bile which was immediately suctioned. Once the gallbladder was dissected free it was removed from the abdomen via an Endobag. Reinspection of the right upper quadrant demonstrated maintenance of hemostasis and all ports are then removed from the abdomen after the right upper quadrant was irrigated and the abdomen was desufflated. The rectus fascia for the supraumbilical incision was reapproximated with a [id number] 0 Vicryl suture. The subcutaneous tissue was reapproximated with a 3-0 Vicryl suture and the epidermal and dermal layers for the remaining incisions were closed with 4-0 Monocryl sutures. Needle, sponge, and instrument counts were correct 2 and the incisions were covered with Steri- Strips and Band-Aids. The patient was aroused from IV sedation, extubated in the operating room without complication, and transported to the recovery room stable condition.
--- NOTE | 2018-01-14 10:43 | Event Note ---
Date of Encounter: 01/14/18 Time of Encounter: 10:42 Laparoscopic cholecystectomy performed without difficulty. From a surgical standpoint she is okay to be discharged home once she is cleared by the primary service. We will make certain she has a follow-up appointment to see us in the office in 2 weeks. You very much.
[2018-01-14] MEDS: *HR* Promethazine 25 MG/ML VIAL IVP PRN ×2 (11:04→11:24)
[2018-01-14] MEDS ORDERED: Naloxone 0.4 MG/ML INJ IVP PRN (11:50)
[2018-01-14] MEDS ORDERED: Ondansetron 4 MG/2 ML VIAL IVP PRN (11:50)
[2018-01-14] MEDS ORDERED: *HR* Dextrose 50 % in Water (Syg) 50 ML SYRINGE IVP PRN (11:50)
[2018-01-14] MEDS ORDERED: Ketorolac 15 MG/ML VIAL IVP PRN (11:50)
[2018-01-14] MEDS ORDERED: Acetaminophen 325 MG TABLET PO PRN (11:50)
[2018-01-14] MEDS ORDERED: D5% in Water 1,000 ML IVC PRN (11:50)
[2018-01-14] MEDS ORDERED: MORPHINE SUL Oral CONC 10 MG/0.5 ML ORAL.SYG SL PRN (11:50)
[2018-01-14] MEDS ORDERED: *HR* OxyCODONE/APAP 7.5/325 TABLET PO PRN (11:50)
[2018-01-14] MEDS ORDERED: Dextrose Gel 15 GM/37.5 ML TUBE PO PRN ×2 (11:50)
[2018-01-14] MEDS: Insulin DETEMIR 100 UNIT/ML X5UNITS SQ SCH (11:55)
--- NOTE | 2018-01-14 14:00 | Discharge Summary ---
- NOTES TO OUTPATIENT PROVIDER Notes to Outpatient Provider: Patient hospitalized here with epigastric abdominal pain along with nausea. Underwent CT scan of the abdomen and gallbladder ultrasound which showed findings suggestive of acute cholecystitis. Was evaluated by surgery and taken for laparoscopic cholecystectomy today. She has been cleared for discharge from surgery standpoint. Her major medical issue is diabetes which is uncontrolled. She takes metformin at home but her A1c is 10. As such, I am placing her on glimepiride and Januvia in addition to metformin. She will follow up with her primary care provider for further management of her diabetes. Orders not resulted at time of discharge: Pending orders 01/14/18 10:29 Surgical Pathology [PTH] Routine Date of Encounter: 01/14/18 Time of Encounter: 13:58 - Discharge Diagnosis (1) Acute cholecystitis Priority: Primary Status: Acute (2) Hypertension Priority: Secondary Status: Chronic Qualifiers: Hypertension type: essential hypertension Qualified Code(s): I10 - Essential (primary) hypertension (3) Uncontrolled diabetes mellitus Priority: Secondary Status: Chronic Qualifiers: Diabetes mellitus type: type 2 Diabetes mellitus snf insulin use: without snf use Diabetes mellitus complication status: with unspecified complications Qualified Code(s): E11.8 - Type 2 diabetes mellitus with unspecified complications; E11.65 - Type 2 diabetes mellitus with hyperglycemia (4) Thickening of wall of gallbladder with pericholecystic fluid Priority: Secondary Status: Acute (5) DVT prophylaxis Priority: Secondary Status: Acute (6) Obesity (BMI 30.0-34.9) Priority: Secondary Status: Chronic Hospital course: Ms. David is a 37 year old female Patient with history of diabetes who was initially hospitalized here with epigastric abdominal pain along with nausea. Underwent CT scan of the abdomen and gallbladder ultrasound which showed findings suggestive of acute cholecystitis. Was evaluated by surgery and taken for laparoscopic cholecystectomy today. She has been cleared for discharge from surgery standpoint. Her major medical issue is diabetes which is uncontrolled. She takes metformin at home but her A1c is 10. As such, I am placing her on glimepiride and Januvia in addition to metformin. She will follow up with her primary care provider for further management of her diabetes. Discharge discussed with: patient, family - Time Spent with Patient Total time spent providing and/or coordinating discharge services: Greater than 30 minutes (32 min) - Discharge Medications Prescriptions: OxyCODONE/APAP 7.5/325 [Percocet 7.5/325 MG] 1 each PO Q8HR PRN 5 Days #15 tablet PRN Reason: Moderate Pain Glimepiride [Amaryl] 2 mg PO 0800 #30 tablet SitaGLIPtin [Januvia] 100 mg PO DAILY #30 tablet Home Medications: Lisinopril [Zestril] 20 mg PO DAILY #30 tablet 09/09/16 [Rx] Metformin HCl [Glucophage] 1,000 mg PO BIDWM #60 tablet 09/09/16 [Rx] Glimepiride [Amaryl] 2 mg PO 0800 #30 tablet 01/14/18 [Rx] OxyCODONE/APAP 7.5/325 [Percocet 7.5/325 MG] 1 each PO Q8HR PRN 5 Days #15 tablet 01/14/18 [Rx] SitaGLIPtin [Januvia] 100 mg PO DAILY #30 tablet 01/14/18 [Rx] Allergies/Adverse Reactions: 3 Allergy/AdvReac Type Severity Reaction Status Date / Time No Known Allergies Allergy Verified 01/12/18 22:05 Date of admission: 01/13/18 00:52 Primary care physician: Rohit Calle DO Consults: 01/13/18 04:25 Consult to Diabetes Education [CONS] Routine Comment: Reason for Consult: HGB Alc level 10, non-compliant with metformin Discharging clinician: Zay Jenkins Anticipated date of discharge: 01/14/18 - Constitutional Vitals: Temp Pulse Resp BP Pulse Ox 97.4 F L 89 17 144/83 96 01/14/18 11:42 01/14/18 12:31 01/14/18 12:31 01/14/18 12:31 01/14/18 12:31 General appearance: Present: cooperative, A&O X 3, pleasant, no acute distress, obese, answers questions appropriately - Respiratory Respiratory exam: Present: CTAB. Absent: accessory muscle use, rales, rhonchi, wheezes - Cardiovascular Cardiovascular exam: Present: RRR, +S1, +S2. Absent: diastolic murmur, gallop, rubs, systolic murmur - GI/Abdominal GI/Abdominal exam: Present: normal bowel sounds, soft, tenderness ( epigastric) , no peritoneal signs. Absent: distended - Extremities Exam Extremities exam: Present: warm, radial pulses palpable and symmetrical. Absent : calf tenderness, cyanotic, pedal edema - Patient Status Disposition: Home, Self-Care Condition: Good Functional capacity at discharge: independent ambulation Overall status at discharge: patient is progressing back to baseline - Discharge Instructions Instructions: Laparoscopic Cholecystectomy (DC) Follow Up With: Rohit Calle DO [Primary Care Provider] - (in 1-2 weeks) Deo Carvalho MD [Partnered Physician] - (in 1-2 weeks for follow up) - Diet and Activity Activity: as per physical therapy Diet: advance to your usual diet, low fat, low cholesterol - VTE Documentation of Mechanical Device: Intermittent pneumatic compression device
[2018-01-14 15:47] VITALS: BP 134/77
[2018-01-14] MEDS ORDERED: cefOXitin 1,000 MG in Water for inj. (sterile) 20 ML 10 ML IVP SCH (16:00)
[2018-01-14] MEDS ORDERED: Insulin LISPRO 300 UNITS/3 ML VIAL SQ SCH ×2 (16:30→21:00)
[2018-01-14] MEDS ORDERED: Insulin DETEMIR 100 UNIT/ML X5UNITS SQ SCH (21:00)
[2018-01-15] MEDS ORDERED: Lisinopril 20 MG TABLET PO SCH (09:00)
== END 2018-01-14 20:45 | disposition home or self-care (01) ==
LOC: EMEROO 19:34 → 2ANU 19:34 → SUATTDRO 01-13 00:52 → 2ANU 01-13 01:20
PROVIDERS: ADMIT Family Medicine; ATTEND Internal Medicine